=== PATIENT | female | born 1935 ===

== ENCOUNTER 2017-07-27 18:19 | Emergency (ER) | payer MEDICARE, BC ==
[2017-07-27 18:20] VITALS: BMI 24.5
[2017-07-27 18:35] VITALS: BP 131/74; PULSE 93; RESP 18; TEMP 98.5; O2SAT 97
--- NOTE | 2017-07-27 19:40 | ED PDOC ---
Arrival/HPI - General Chief Complaint: Medical Clearance Time Seen by Provider: 07/27/17 18:57 Historian: Patient - History of Present Illness Narrative History of Present Illness (Text): 07/27/17 19:50 An 82 year old female, whose past medical history includes hyperlipidemia, hypertension, ulcerative colitis, chronic UTI, Alzheimer's disease, presents to the emergency department for generalized weakness and poor appetite for two days. Patient's daughter reports patient had an infection and was taking Cipro prescribed by PMD. Denies any diarrhea, fever, chills, vomiting or any other complaints at this time. PMD: Dr. Siddiqui Symptom Onset: Sudden Symptom Course: Unchanged Activities at Onset: Rest Context: Home Past Medical History - Provider Review Nursing Documentation Reviewed: Yes - Infectious Disease Hx of Infectious Diseases: None - Tetanus Immunization Tetanus Immunization: Unknown - Cardiac Hx Cardiac Disorders: Yes Hx Hypertension: Yes Hx Pacemaker: No - Pulmonary Hx Respiratory Disorders: Yes Hx Asthma: Yes - Neurological Hx Neurological Disorder: Yes Hx Dementia: Yes Hx Paralysis: No - HEENT Hx HEENT Disorder: Yes Hx Cataracts: Yes - Renal Hx Renal Disorder: No - Endocrine/Metabolic Hx Endocrine Disorders: No - Hematological/Oncological Hx Blood Disorders: Yes Hx Blood Transfusions: No Hx Blood Transfusion Reaction: No Hx Cancer: Yes (right breast) - Integumentary Hx Dermatological Disorder: No - Musculoskeletal/Rheumatological Hx Musculoskeletal Disorders: No - Gastrointestinal Hx Gastrointestinal Disorders: Yes Hx Colitis: Yes Hx Irritable Bowel: Yes - Genitourinary/Gynecological Hx Genitourinary Disorders: Yes (UTI) Hx Reproductive Disorders: No - Psychiatric Hx Psychophysiologic Disorder: No Hx Emotional Abuse: No Hx Physical Abuse: No Hx Substance Use: No - Surgical History Hx Cholecystectomy: Yes Hx Eye Surgery: Yes Hx Mastectomy: Yes (right) - Anesthesia Hx Anesthesia Reactions: No Hx Malignant Hyperthermia: No - Suicidal Assessment Feels Threatened In Home Enviroment: No Family/Social History - Physician Review Nursing Documentation Reviewed: Yes Family/Social History: Other (non-contributory) Smoking Status: Never Smoked Hx Alcohol Use: No Hx Substance Use: No Hx Substance Use Treatment: No Allergies/Home Meds Allergies/Adverse Reactions: Allergies codeine Allergy (Intermediate, Verified 07/13/16 16:53) RASH Sulfa (Sulfonamide Antibiotics) Allergy (Intermediate, Verified 07/13/16 16:53) RASH aspirin Adverse Reaction (Intermediate, Verified 07/13/16 16:53) UPSET STOMACH Home Medications: Home Meds Medication Instructions Recorded Confirmed Donepezil HCl [Aricept ODT] 5 mg PO HS 12/04/15 07/27/17 Metoprolol Tartrate [Lopressor] 25 mg PO QID 12/04/15 07/27/17 Potassium Chloride [Klor-Con 10] 10 meq PO DAILY 12/04/15 07/27/17 Risperidone [Risperdal] 1 mg PO HS 12/04/15 07/27/17 Rosuvastatin Calcium [Crestor] 5 mg PO HS 12/04/15 07/27/17 Cyproheptadine [Cyproheptadine 4 mg PO BID 12/05/15 07/27/17 Hydrochloride] Dicyclomine [Dicyclomine HCl] 10 mg PO BID PRN 12/05/15 07/27/17 Cholestyramine [Questran] 1 packet PO .BEFORE MEALS 07/13/16 07/27/17 Ergocalciferol (Vitamin D2) 50,000 units PO .EVERY WEEK 07/13/16 07/27/17 [Vitamin D] Mesalamine [Asacol HD 800mg] 1 tab PO TID 07/13/16 07/27/17 Review of Systems - Physician Review All systems were reviewed & negative as marked: Yes - Review of Systems Constitutional: Other (generalized weakness and feeling tired; no chills). absent: Fevers Gastrointestinal: Appetite Changes. absent: Diarrhea, Vomiting Psychiatric: Other (delusional) Physical Exam Vital Signs Reviewed: Yes Vital Signs Temp Pulse Resp BP Pulse Ox 07/27/17 18:35 98.5 F 93 H 18 131/74 97 Appearance: Positive for: Comfortable Pain Distress: None Mental Status: Positive for: other (demented at baseline) - Systems Exam Head: Present: Atraumatic, Normocephalic Pupils: Present: PERRL Mouth: Present: Moist Mucous Membranes Neck: Present: Normal Range of Motion Respiratory/Chest: Present: Clear to Auscultation, Good Air Exchange. No: Respiratory Distress, Accessory Muscle Use Cardiovascular: Present: Regular Rate and Rhythm, Normal S1, S2. No: Murmurs Abdomen: Present: Normal Bowel Sounds. No: Tenderness, Distention, Peritoneal Signs Upper Extremity: Present: Normal Inspection. No: Cyanosis, Edema Lower Extremity: Present: Normal Inspection. No: Edema Skin: Present: Warm, Dry, Normal Color. No: Rashes Psychiatric: Present: Alert, Normal Insight Medical Decision Making ED Course and Treatment: 07/27/17 19:35 EKG: Ordered, reviewed, and independently interpreted the EKG. Rate : 82 BPM Rhythm : NSR Interpretation : Normal intervals, normal axis, no acute ischemia I disc case w pmd Dr Siddiqui who feels the pt will be best treated at home. Will change cipro to keflex. disc w pts daughter who v/u and agrees w plan. - Lab Interpretations Microbiology Results: Microbiology Results 07/27/17 20:59 Blood Blood Culture - Final NO GROWTH AFTER 5 DAYS 07/27/17 20:59 Blood Gram Stain - Final TEST NOT PERFORMED 07/27/17 20:30 Blood Blood Culture - Final NO GROWTH AFTER 5 DAYS 07/27/17 20:30 Blood Gram Stain - Final TEST NOT PERFORMED 07/27/17 22:20 Urine Urine Culture - Final No Growth (<1,000 CFU/ML) Lab Results: 07/27/17 20:30 07/27/17 20:30 Lab Results 07/27/17 22:20: Urine Color Yellow, Urine Appearance Clear, Urine pH 6.0, Ur Specific [place] >= 1.030, Urine Protein Trace H, Urine Glucose (UA) Negative, Urine Ketones >=80, Urine Blood Negative, Urine Nitrate Negative, Urine Bilirubin Moderate H, Urine Urobilinogen 1.0 H, Ur Leukocyte Esterase Trace H, Urine RBC 0 - 2, Urine WBC 5 - 10, Ur Epithelial Cells 3 - 4, Amorphous Sediment Few, Urine Bacteria Mod, Coarse Granular Casts Trace H 07/27/17 20:30: Sodium 140, Chloride 103, Potassium 3.7, Carbon Dioxide 25, Anion Gap 16, BUN 16, Creatinine 0.6 L, Est GFR ( Amer) > 60, Est GFR ( Non-Af Amer) > 60, Random Glucose 87, Calcium 10.0, Phosphorus 3.0, Magnesium 2.0, Total Bilirubin 0.7, AST 24, ALT 18, Alkaline Phosphatase 72, Troponin I < 0.01, Total Protein 6.8, Albumin 4.0, Globulin 2.8, Albumin/Globulin Ratio 1.4 07/27/17 20:30: pO2 33, VBG pH 7.38, VBG pCO2 45.0, VBG HCO3 26.6, VBG Total CO2 28.0, VBG O2 Sat (Calc) 78.7 H, VBG Base Excess 1.0, VBG Potassium 3.8, Sodium 139.0, Chloride 105.0, Glucose 86, Lactate 0.9, FiO2 21.0, Venous Blood Potassium 3.8 07/27/17 20:30: PT 12.6 H, INR 1.15 H, APTT 35.0 07/27/17 20:30: WBC 7.9, RBC 4.33, Hgb 12.7, Hct 37.5, MCV 86.6, MCH 29.3, MCHC 33.9, RDW 12.5, Plt Count 226, MPV 9.5, Gran % 65.6, Lymph % (Auto) 25.3, [place] % (Auto) 7.2 H, Eos % (Auto) 1.4 L, Baso % (Auto) 0.5, Gran # 5.16, Lymph # 2.0 , [place] # 0.6, Eos # 0.1, Baso # 0.04 I have reviewed the lab results: Yes - RAD Interpretation Radiology Orders: 07/27/17 19:09 CHEST PORTABLE [RAD] Stat - EKG Interpretation Interpreted by ED Physician: Yes Type: 12 lead EKG - Medication Orders Current Medication Orders: Discontinued Medications Sodium Chloride 2,000 ml/ IV (SUPPLIES) 2,000 mls @ 3,347.52 mls/hr IV ONCE ONE PRN Reason: 60 ML/KG/HR Stop: 07/27/17 19:10 Ceftriaxone Sodium (Rocephin 1 Gram Ivpb) 1 gm in 100 mls @ 200 mls/hr IVPB STAT STA PRN Reason: Protocol Stop: 07/27/17 23:40 - Scribe Statement The provider has reviewed the documentation as recorded by the Taylor Asif Provider Scribe Attestation: All medical record entries made by the Scribe were at my direction and personally dictated by me. I have reviewed the chart and agree that the record accurately reflects my personal performance of the history, physical exam, medical decision making, and the department course for this patient. I have also personally directed, reviewed, and agree with the discharge instructions and disposition. Disposition/Present on Arrival - Present on Arrival Any Indicators Present on Arrival: No History of DVT/PE: No History of Uncontrolled Diabetes: No Urinary Catheter: No History of Decub. Ulcer: No History Surgical Site Infection Following: None - Disposition Have Diagnosis and Disposition been Completed?: Yes Diagnosis: Urinary tract infection Disposition: HOME/ ROUTINE Disposition Time: 00:02 Condition: STABLE Discharge Instructions (ExitCare): Urinary Tract Infection in Women (ED) Additional Instructions: Please follow up with your doctor tomorrow. Return to the ER for any worsening symptoms or for any other concerns. Prescriptions: Cephalexin [Keflex] 500 mg PO BID #20 capsule Referrals: Sergei Siddiqui MD [Staff Provider] - Follow up with primary Forms: [employer] (Sudanese)
[2017-07-27 20:42] LABS: BASO # 0.04 K/mm3 (0.0-2.0); BASO % 0.5 % (0.0-3.0); EOS # 0.1 (0.0-0.7); EOS % 1.4 % (1.5-5.0); GRAN # 5.16 (1.4-6.5); GRAN % 65.6 % (50.0-68.0); HEMATOCRIT 37.5 % (36.0-48.0); LYMPH % 25.3 % (22.0-35.0); MEAN CELL VOLUME 86.6 fl (80.0-105.0); MEAN CORPUSCULAR HEMOGLOBIN 29.3 pg (25.0-35.0); MEAN CORPUSCULAR HGB CONC 33.9 g/dl (31.0-37.0); MEAN PLATELET VOLUME 9.5 fl (7.0-11.0); MONO # 0.6 (0.1-0.6); MONO % 7.2 % (1.0-6.0); RED CELL DISTRIBUTION WIDTH 12.5 % (11.5-14.5); WHITE BLOOD COUNT 7.9 10^3/ul (4.5-11.0)
[2017-07-27 20:48] LABS: VENOUS BLOOD PH 7.38 (7.32-7.43)
[2017-07-27 20:58] LABS: ALB/GLOB RATIO 1.4 (1.1-1.8); ALKALINE PHOSPHATASE 72 U/L (38-126); ALT/SGPT 18 U/L (7-56); AST/SGOT 24 U/L (14-36); BILIRUBIN,TOTAL 0.7 mg/dL (0.2-1.3); BLOOD UREA NITROGEN 16 mg/dL (7-21); CARBON DIOXIDE 25 mmol/L (21-33); CHLORIDE 103 mmol/L (98-107); GFR AFRICAN-AMERICAN > 60; GLUCOSE,RANDOM 87 mg/dL (70-110); POTASSIUM 3.7 mmol/L (3.6-5.0); SODIUM 140 mmol/L (132-148); TOTAL PROTEIN 6.8 g/dL (5.8-8.3)
[2017-07-27 21:01] LABS: INR 1.15 (0.93-1.08)
[2017-07-27 21:10] LABS: TROPONIN I < 0.01 ng/mL
[2017-07-27 22:35] LABS: URINE APPEARANCE CLEAR (CLEAR); URINE BILIRUBIN MODERATE (NEGATIVE); URINE BLOOD NEGATIVE (NEGATIVE); URINE COLOR YELLOW (YELLOW); URINE GLUCOSE (UA) NEGATIVE (NEGATIVE); URINE KETONE >=80 mg/dL (NEGATIVE); URINE LEUKOCYTE ESTERASE TRACE Leu/uL (NEGATIVE); URINE PROTEIN TRACE mg/dL (<30 mg/dL)
[2017-07-27 22:43] LABS: URINE BACTERIA MOD (NEG); URINE RBC 0 - 2 /hpf (0-2)
[2017-07-27 22:44] LABS: URINE AMORPHOUS SEDIMENT FEW
[2017-07-27] MEDS ORDERED: cefTRIAXone 1 gm 1 GM/100 ML BAG IVPB STA (23:11)
--- NOTE | 2017-07-28 08:40 | RAD ---
HISTORY: Sepsis Patient COMPARISON: 09/03/2015 FINDINGS: LUNGS: No active pulmonary disease. PLEURA: No significant pleural effusion identified, no pneumothorax apparent. CARDIOVASCULAR: Normal. OSSEOUS STRUCTURES: No significant abnormalities. VISUALIZED UPPER ABDOMEN: Normal. OTHER FINDINGS: None. IMPRESSION: No active disease.
--- NOTE | 2017-07-28 08:59 | HP ---
HISTORY OF PRESENT ILLNESS: The patient is an 82-year-old female. The patient was brought to the emergency room by the patient's daughter as an ambulatory walk-in. According to the patient's daughter, the patient has been increasingly depressed and not eating the last 2 days. The patient was seen a few days ago in the office. The patient was started on appetite stimulant and the patient was given p.o. antibiotic for possible suspected urinary tract infection. The patient's daughter stated that the patient has been increasingly depressed and also according to the patient's daughter, the patient has been having visual hallucination and has been psychotic and has been depressed with poor appetite and poor p.o. intake. As per the patient's ER evaluation, the patient presented to the emergency room with weakness, fatigue, tired, delusions, visual hallucination, poor appetite,and had been increasingly depressed and confused. CODE STATUS: Full code. LIVING WILL ADVANCE DIRECTIVE: None. HEIGHT: 5 feet 1 inch. WEIGHT: 123. BMI: 23. ALLERGIES: CODEINE, SULFA, ASPIRIN. HOME MEDICATIONS: 1. Aricept 5 mg or 10 mg at bedtime. 2. Asacol 800 mg 3 times a day. 3. Bentyl 10 mg twice a day p.r.n. 4. Crestor 5 mg daily. 5. K-Dur 10 mEq probably twice a day. 6. Lopressor 25 mg 4 times a day. 7. Macrobid 100 mg twice a day. 8. Periactin 4 mg twice a day. 9. Megace suspension or tablet. 10. Cholestyramine 1 packet 3 times a day. 11. Risperdal 1 mg at bedtime. 12. Drisdol 50,000 weekly. SUBSTANCE HISTORY: Negative for smoking, alcohol, or drug use or communicable transmissible disease. MENSTRUAL HISTORY: Postmenopausal. OCCUPATIONAL HISTORY: Disabled. FAMILY HISTORY: Not available. PAST MEDICAL AND SURGICAL HISTORY: History of dementia, history of dyslipidemia, history of psychosis, history of auditory and visual hallucination, history of ulcerative colitis, history of chronic abdominal pain, history of recurrent pyuria, bacteriuria, and Klebsiella urine tract infection, history of hypokalemia, history of dyslipidemia, history of anorexia, history of hypovitaminosis D, history of mild transient normocytic anemia, history of negative serum immunofixation, history of negative urine immunofixation, multiple urinary tract infections, cholecystectomy, history of sigmoid diverticulosis with mural thickening, history of uterine polyp, 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, history of soft tissue rounded ovarian mass within the endometrial cavity suspicious for endometrial polyp, history of osteoporosis and osteopenia, history of deconditioning, history of gait dysfunction, history of right breast carcinoma, history of right mastectomy in 1986, history of negative left breast mammogram, history of degenerative joint disease of the spine, history of chronic active antral gastritis, history of cardiac catheterization in 2012, history of left ventricular ejection fraction of 65%, history of negative cardiac catheterization for any coronary artery disease, esophagogastroduodenoscopy, history of small hiatal hernia, history of sepsis with Klebsiella urinary tract infection, history of delirium, history of encephalopathy, history of bradycardia, hypomagnesemia, hypertension, 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 PHYSICAL EXAMINATION: GENERAL: The patient is seen in the isolation room in the emergency room. The patient is seen lying in the bed with the patient's daughter at bedside. The patient is getting IV fluid infusion. The patient is alert, awake, responsive, confused. The patient appears to be chronically ill appearing. VITAL SIGNS: T-max 98.5, heart rate 93, blood pressure 134, 74, respiration 18, O2 saturation 97%. HEENT: Head, normocephalic, atraumatic. ENT examination shows dry oral mucosa. No facial asymmetry. Tongue is dry. Pinkish conjunctivae. NECK: No neck rigidity. Questionable soft carotid bruit. CHEST: Kyphosis. Positive right mastectomy noted. LUNGS: Examination shows no rales, crackles, or wheezing. CARDIOVASCULAR: S1 and S2. Regular rhythm. No audible murmur, gallop, or rub at this time. ABDOMEN: Soft. Positive bowel sounds. No guarding. No rigidity or rebound tenderness. No costovertebral angle tenderness. Positive kyphosis of the spine noted. GENITALIA: Female. RECTAL: Deferred. EXTREMITIES: Show no pitting edema. No calf tenderness. No Homans sign. NEUROLOGIC: The patient is alert, awake, responsive, confused, disoriented, is able to respond to her name, follow simple command. Gait examination is not tested. MUSCULOSKELETAL: Examination shows a body mass index of 23. DIAGNOSTIC STUDIES: WBC 7.9, hemoglobin and hematocrit 12.7 and 37.5, platelet 226, PT and PTT are 12.6 and 35.0. VBG shows a pH of 7.38, pO2 33, pCO2 45, bicarb 26, lactic acid 0.9. Sodium 140, potassium 3.7, chloride 103, CO2 25, anion gap 16, BUN 16, creatinine 0.6, GFR greater than 60, glucose 87, calcium 10.0, phosphorus 3.0, magnesium 2.0, troponin negative. LFTs are normal. Urine pH 6.0, specific gravity greater than 1.030, trace protein, moderate bilirubin, leukocyte esterase trace, nitrite negative, trace granular casts, moderate bacteria. The patient's chest x-ray shows, portable film, curvature of the spine. EKG report not available at present. It has been ordered. TREATMENT IN THE EMERGENCY ROOM: The patient was seen in the emergency room by the ER physician. The patient was given IV fluid replacement. The patient is awaiting EKG results. IMPRESSION: 1. Anorexia and poor oral intake. 2. Acute exacerbation of depression. 3. Acute exacerbation of hallucination, psychosis. 4. Acute exacerbation of dementia. 5. Transient tachycardia. 6. Trace proteinuria, bilirubinuria, pyuria, bacteriuria. 7. History of dementia. 8. History of dyslipidemia. 9. History of hypokalemia. 10. History of recurrent urine tract infection secondary to bladder diverticulum. 11. History of ulcerative colitis. 12. Hypovitaminosis D. PLAN: At this time, we are awaiting for the final disposition regarding the patient. If the patient is going to be admitted, the patient will require to be placed on regular diet with appetite stimulant and nutritional supplement with regular diet. The patient will require Neurology and Psychiatry evaluation if the patient is to be admitted. The patient will also may require Gastroenterology evaluation. The patient will be given regular diet if admitted. We are awaiting for further disposition about the patient's disposition. We are awaiting pending diagnostic data. Sergei Siddiqui MD
--- NOTE | 2017-07-28 09:59 | CARD ---
APPROVED REPORT EKG Measurement Heart [id number] <Conclusion> Normal sinus rhythm Normal ECG No change
== END 2017-07-28 00:02 | disposition home or self-care (01) ==
LOC: ED 18:19
DX: N39.0 Urinary tract infection, site not specified (principal); E78.5 Hyperlipidemia, unspecified; F02.80 Dementia in other diseases classified elsewhere, unspecified severity, without behavioral disturbance, psychotic disturbance, mood disturbance, and anxiety; G30.9 Alzheimer's disease, unspecified; I10 Essential (primary) hypertension

== ENCOUNTER 2017-10-10 03:59 | Inpatient (IN) | payer MEDICARE, BC ==
[2017-10-10 04:51] VITALS: BMI 22.6
--- NOTE | 2017-10-10 05:26 | ED PDOC ---
Arrival/HPI - General Chief Complaint: Trauma Time Seen by Provider: 10/10/17 05:09 Historian: Family - History of Present Illness Narrative History of Present Illness (Text): 10/10/17 05:21 Angela Parry is an 82 year old female, whose past medical history includes hyperlipidemia, hypertension, ulcerative colitis, chronic UTI, and Alzheimer's disease, who presents to the emergency department brought in by daughter status post fall tonight. Daughter states she woke up tonight to check on the patient and found her lying on the floor. Daughter is unsure how the patient fell. Daughter also notes patient fell again while walking in to the ER. Limited HPI and ROS secondary to patient's dementia. PMD: Dr. Siddiqui Time/Duration: Prior to Arrival Symptom Course: Unchanged Activities at Onset: Light Context: Home Past Medical History - Provider Review Nursing Documentation Reviewed: Yes - Infectious Disease Hx of Infectious Diseases: None - Tetanus Immunization Tetanus Immunization: Unknown - Cardiac Hx Cardiac Disorders: Yes Hx Hypertension: Yes Hx Pacemaker: No - Pulmonary Hx Respiratory Disorders: Yes Hx Asthma: Yes - Neurological Hx Neurological Disorder: Yes Hx Dementia: Yes Hx Paralysis: No - HEENT Hx HEENT Disorder: Yes Hx Cataracts: Yes - Renal Hx Renal Disorder: No - Endocrine/Metabolic Hx Endocrine Disorders: No - Hematological/Oncological Hx Blood Disorders: Yes Hx Blood Transfusions: No Hx Blood Transfusion Reaction: No Hx Cancer: Yes (right breast) - Integumentary Hx Dermatological Disorder: No - Musculoskeletal/Rheumatological Hx Musculoskeletal Disorders: No - Gastrointestinal Hx Gastrointestinal Disorders: Yes Hx Colitis: Yes Hx Irritable Bowel: Yes - Genitourinary/Gynecological Hx Genitourinary Disorders: Yes (UTI) Hx Reproductive Disorders: No - Psychiatric Hx Psychophysiologic Disorder: No Hx Emotional Abuse: No Hx Physical Abuse: No Hx Substance Use: No - Surgical History Hx Cholecystectomy: Yes Hx Eye Surgery: Yes Hx Mastectomy: Yes (right) - Anesthesia Hx Anesthesia Reactions: No Hx Malignant Hyperthermia: No - Suicidal Assessment Feels Threatened In Home Enviroment: No Family/Social History - Physician Review Nursing Documentation Reviewed: Yes Family/Social History: Unknown Family HX Smoking Status: Never Smoked Hx Alcohol Use: No Hx Substance Use: No Hx Substance Use Treatment: No Allergies/Home Meds Allergies/Adverse Reactions: Allergies codeine Allergy (Intermediate, Verified 07/13/16 16:53) RASH Sulfa (Sulfonamide Antibiotics) Allergy (Intermediate, Verified 07/13/16 16:53) RASH aspirin Adverse Reaction (Intermediate, Verified 07/13/16 16:53) UPSET STOMACH Home Medications: Home Meds Medication Instructions Recorded Confirmed Donepezil HCl [Aricept ODT] 10 mg PO HS 12/04/15 10/10/17 Risperidone [Risperdal] 1 mg PO HS 12/04/15 10/10/17 Review of Systems - Review of Systems Systems not reviewed;Unavailable: Dementia Constitutional: Other (+fall) Physical Exam Vital Signs Reviewed: Yes Vital Signs Temp Pulse Resp BP Pulse Ox 10/10/17 04:35 98.0 F 120 H 19 122/52 L 97 Temperature: Afebrile Blood Pressure: Normal Pulse: Regular Respiratory Rate: Normal Appearance: Positive for: Well-Appearing, Non-Toxic, Comfortable Pain Distress: None Mental Status: Positive for: other (Awake, alert, non-communicative (hx of dementia)) - Systems Exam Head: Present: Atraumatic, Normocephalic Pupils: Present: PERRL Extroacular Muscles: Present: EOMI Conjunctiva: Present: Normal Mouth: Present: Moist Mucous Membranes Neck: Present: Normal Range of Motion Respiratory/Chest: Present: Clear to Auscultation, Good Air Exchange. No: Respiratory Distress, Accessory Muscle Use Cardiovascular: Present: Regular Rate and Rhythm, Normal S1, S2. No: Murmurs Abdomen: Present: Normal Bowel Sounds. No: Tenderness, Distention, Peritoneal Signs Back: Present: Normal Inspection Upper Extremity: Present: Normal Inspection. No: Cyanosis, Edema Lower Extremity: Present: Normal Inspection, NORMAL PULSES, Normal ROM, Neurovascularly Intact, Capillary Refill < 2 s. No: Edema, Tenderness, Swelling , Erythema, Deformity, Temperature Abnormalties Neurological: Present: GCS=15, CN II-XII Intact Skin: Present: Warm, Dry, Normal Color. No: Rashes Psychiatric: Present: Alert (Awake, alert, non-communicative (hx of dementia)) Medical Decision Making ED Course and Treatment: 10/10/17 05:21 Impression: 82 year old female presents s/p 2 fall tonight. Plan: -- CT Head w/o contrast -- EKG -- CXR -- Labs, cardiac enzymes -- Urinalysis -- Reassess and disposition Progress Notes: Reviewed EKG, NSR at [address] bpm[address] Non-specific ST/T wave changes. 10/10/17 06:44 CXR reviewed, shows no acute processes. 10/10/17 07:11 Case was d/w .Accepts to his service. - Lab Interpretations Lab Results: 10/10/17 05:30 10/10/17 05:30 Lab Results 10/10/17 06:10: Urine Color Yellow, Urine Appearance Clear, Urine pH 6.0, Ur Specific [place] >= 1.030, Urine Protein 30 H, Urine Glucose (UA) Negative, Urine Ketones 15 H, Urine Blood Trace-intact H, Urine Nitrate Negative, Urine Bilirubin Negative, Urine Urobilinogen 0.2, Ur Leukocyte Esterase Negative, Urine RBC Pending, Urine WBC Pending 10/10/17 05:30: WBC 8.7, RBC 4.16, Hgb 12.2, Hct 37.0, MCV 88.9, MCH 29.3, MCHC 33.0, RDW 13.1, Plt Count 235, MPV 9.9 10/10/17 05:30: Sodium 140, Potassium 2.9 L* D, Chloride 100, Carbon Dioxide 29 , Anion Gap 14, BUN 9, Creatinine 0.5 L, Est GFR ( Amer) > 60, Est GFR ( Non-Af Amer) > 60, Random Glucose 148 H, Calcium 10.2, Total Bilirubin 0.7, AST 33, ALT 12, Alkaline Phosphatase 71, Lactate Dehydrogenase 388, Total Creatine Kinase 65, Troponin I 0.04 D, Total Protein 7.2, Albumin 4.2, Globulin 3.0, Albumin/Globulin Ratio 1.4 10/10/17 05:30: PT 11.8, INR 1.03, APTT 31.0 - RAD Interpretation Radiology Orders: 10/10/17 05:09 CHEST PORTABLE [RAD] Stat 10/10/17 05:22 HEAD W/O CONTRAST [CT] Stat Manager Net: ED Physician - EKG Interpretation Interpreted by ED Physician: Yes Type: 12 lead EKG - Medication Orders Current Medication Orders: Discontinued Medications Lorazepam (Ativan) 1 mg IVP ONCE ONE Stop: 10/10/17 05:29 Last Admin: 10/10/17 05:40 Dose: 1 mg IVP Administration Document 10/10/17 05:40 JOL (Rec: 10/10/17 06:10 GUILHERME [id number]) Charges for Administration # of IVP Administrations 1 Potassium Chloride (K-Dur 20 Meq Er Tab) 40 meq PO STAT STA Stop: 10/10/17 06:56 - Scribe Statement The provider has reviewed the documentation as recorded by the Taylor Badillo Provider Scribe Attestation: All medical record entries made by the Scribe were at my direction and personally dictated by me. I have reviewed the chart and agree that the record accurately reflects my personal performance of the history, physical exam, medical decision making, and the department course for this patient. I have also personally directed, reviewed, and agree with the discharge instructions and disposition. Disposition/Present on Arrival - Present on Arrival Any Indicators Present on Arrival: No History of DVT/PE: No History of Uncontrolled Diabetes: No Urinary Catheter: No History of Decub. Ulcer: No History Surgical Site Infection Following: None - Disposition Have Diagnosis and Disposition been Completed?: Yes Diagnosis: Syncope, Hypokalemia Disposition: HOSPITALIZED Disposition Time: 07:03 Patient Problems: Current Active Problems Problem Status Onset Hypokalemia Acute Syncope Acute Condition: STABLE Discharge Instructions (ExitCare): Syncope (ED) Referrals: Sergei Siddiqui MD [Primary Care Provider] - Follow up with primary Forms: [employer] (Panamanian)
[2017-10-10 06:32] LABS: HEMOGLOBIN 12.2 g/dL (12.0-16.0); MEAN CELL VOLUME 88.9 fl (80.0-105.0); MEAN CORPUSCULAR HEMOGLOBIN 29.3 pg (25.0-35.0); MEAN PLATELET VOLUME 9.9 fl (7.0-11.0); RBC 4.16 10^6/uL (3.5-6.1); RED CELL DISTRIBUTION WIDTH 13.1 % (11.5-14.5); WHITE BLOOD COUNT 8.7 10^3/ul (4.5-11.0)
[2017-10-10 06:45] LABS: TROPONIN I 0.04 ng/mL
--- NOTE | 2017-10-10 06:52 | CT ---
EXAM: CT Head Without Intravenous Contrast CLINICAL HISTORY: 82 years old, female; Signs and symptoms; Syncope and collapse TECHNIQUE: Axial computed tomography images of the head/brain without intravenous contrast. All CT scans at this facility use one or more dose reduction techniques, viz.: automated exposure control; ma/kV adjustment per patient size (including targeted exams where dose is matched to indication; i.e. head); or iterative reconstruction technique. COMPARISON: CT - HEAD W/O CONTRAST 2015-09-03 10:42 FINDINGS: Brain: Mild atrophy. No intracranial hemorrhage. No mass. Few scattered foci of decreased attenuation within periventricular/subcortical white matter. No definite edema. Ventricles: No hydrocephalus. Bones/joints: No acute fracture. Soft tissues: Unremarkable. Vasculature: Mild atherosclerotic disease of intracranial arteries. Sinuses: Scattered minimal mucosal thickening. Mastoid air cells: No mastoid effusion. Orbits: Unremarkable as visualized. IMPRESSION: 1. Nonspecific white matter changes. Acute infarction may be CT occult within first 24 hours. If a focal deficit persists, consider followup CT or MRI for further evaluation. 2. Incidental/non-acute findings are described above.
[2017-10-10 06:53] LABS: URINE BILIRUBIN NEGATIVE (NEGATIVE); URINE BLOOD TRACE-INTACT (NEGATIVE); URINE GLUCOSE (UA) NEGATIVE (NEGATIVE); URINE LEUKOCYTE ESTERASE NEGATIVE Leu/uL (NEGATIVE); URINE NITRATE NEGATIVE (NEGATIVE); URINE PROTEIN 30 mg/dL (<30 mg/dL); URINE UROBILINOGEN 0.2 E.U./dL (<1 E.U./dL)
[2017-10-10 06:53] LABS: INR 1.03 (0.93-1.08); PROTHROMBIN TIME 11.8 SECONDS (9.4-12.5)
[2017-10-10] MEDS ORDERED: Potassium Chloride 20 mEq ER Tab PO STA (06:55)
[2017-10-10 06:57] LABS: URINE APPEARANCE CLEAR (CLEAR); URINE COLOR YELLOW (YELLOW)
[2017-10-10 06:59] LABS: ALB/GLOB RATIO 1.4 (1.1-1.8); ALBUMIN 4.2 g/dL (3.0-4.8); ALT/SGPT 12 U/L (7-56); AST/SGOT 33 U/L (14-36); BLOOD UREA NITROGEN 9 mg/dL (7-21); CALCIUM 10.2 mg/dL (8.4-10.5); GFR AFRICAN-AMERICAN > 60; GFR NON-AFRICAN AMERICAN > 60
[2017-10-10] MEDS ORDERED: Potassium Chloride 20 mEq 100 ML IV ONE (07:10)
[2017-10-10 07:28] LABS: URINE EPITHELIAL CELLS 0 - 2 /hpf (0-5)
[2017-10-10 08:37] LABS: MAGNESIUM 1.9 mg/dL (1.7-2.2)
[2017-10-10 08:47] LABS: TROPONIN I 0.05 ng/mL
[2017-10-10] MEDS: Sodium Chloride 0.9% 1,000 ML IV SCH ×2 (08:49→20:33)
[2017-10-10 08:54] LABS: FREE T4 1.59 ng/dL (0.78-2.19); T4 14.5 ug/dL (5.5-11.0)
[2017-10-10] MEDS: Potassium Chloride 10 mEq 100 ML IVPB SCH ×2 (09:04→11:26)
[2017-10-10] MEDS: Enoxaparin 40 mg Syringe SC SCH (10:09)
--- NOTE | 2017-10-10 11:04 | RAD ---
PROCEDURE: CHEST RADIOGRAPH, 1 VIEW HISTORY: medical clearance COMPARISON: None available. FINDINGS: LUNGS: Mild fibrotic changes with suggestion of slight interval bronchiectasis in the left upper lobe. PLEURA: No pneumothorax or pleural fluid seen. CARDIOVASCULAR: Normal. OSSEOUS STRUCTURES: No significant abnormalities. VISUALIZED UPPER ABDOMEN: Normal. OTHER FINDINGS: None. IMPRESSION: Mild fibrotic changes with suggestion of slight interval bronchiectasis in the left upper lobe.
[2017-10-10 11:42] LABS: TROPONIN I 0.05 ng/mL
--- NOTE | 2017-10-10 11:50 | CARD ---
APPROVED REPORT EKG Measurement Heart [id number] <Conclusion> Normal sinus rhythm Nonspecific T wave abnormality Abnormal ECG
--- NOTE | 2017-10-10 15:37 | CON ---
DATE: 10/10/2017 CHIEF COMPLAINT: Status post fall. HISTORY OF PRESENT ILLNESS: This is an 82-year-old woman with past medical history of dementia, ulcerative colitis, hypertension, chronic UTIs, hyperlipidemia, presented to the ER because the daughter found her on the floor by her bed. I am unsure whether the patient passed out or she fell. While she fell again while walking to the ER. She is deconditioned. She does have dementia and is alert, oriented to person, place, and not much of the month or year. Recall after 5 minutes is 0 out of 3. She has very poor attention span. She is on Aricept 10 mg for underlying dementia. She is on Risperdal at night for agitation. She was found to have low potassium 2.9 and seems very dehydrated with a low creatinine of 0.5. Her blood pressures are stable. PAST MEDICAL HISTORY: Hyperlipidemia, hypertension, ulcerative colitis, chronic UTI, Alzheimer's type dementia. REVIEW OF SYSTEMS: A 14-point review of systems is negative except as per the HPI. FAMILY HISTORY: Noncontributory. ALLERGIES: CODEINE, SULFA, AND ASPIRIN. MEDICATIONS: Reviewed by nurse's reconciliation sheet. SOCIAL HISTORY: No illicit drug use, smoking, or EtOH abuse. FAMILY HISTORY: Noncontributory. PHYSICAL EXAMINATION: VITAL SIGNS: Temperature 98, pulse rate of 120, blood pressure 122/52, respiratory rate 19, oxygen saturation 97% on room air. GENERAL: The patient is sitting up in bed, in no acute distress.. HEENT: Atraumatic and normocephalic. PERRLA. Extraocular muscles intact. NECK: Supple. No JVD. No adenopathy noted. LUNGS: Clear to auscultation. No adventitious sounds. HEART: S1 and S2. Normal rate and rhythm. No murmurs, rubs, or gallops. ABDOMEN: Soft, nontender and nondistended. Bowel sounds are present. EXTREMITIES: No clubbing. No cyanosis. Peripheral pulses are 2+ felt bilaterally. NEUROLOGIC: The patient is alert and oriented to person, place, not much of month and year. Recall in 5 minutes is 0/3. Poor attention span and slow thought process. She has very disorganized thinking and is very forgetful. Her cranial nerves II through XII are intact. Motor exam, slightly increased tone throughout. Moves all extremities equally. No pronator drift seen. Sensory exam: Withdraws to localized noxious stimulus. Light touch intact. DTRs are 1+ throughout. Coordination and [id number] intact. Gait is deferred for now. LABORATORY DATA: Sodium 140, potassium 2.9, chloride 100, carbon dioxide of 29, BUN of 9, creatinine 0.5, and random glucose 148. ASSESSMENT: This is an 82-year-old woman with history of dementia, Alzheimer's type, hypertension, dyslipidemia, ulcerative colitis, chronic urinary tract infection, new component of status post fall; was unsure whether the patient had passed out or had a mechanical fall. At this time, she is deconditioned. She does have severe cognitive impairment. RECOMMENDATIONS: 1. Aricept 10 mg p.o. at bedtime and thiamine 100 mg p.o. daily for underlying dementia. 2. Delirium precautions. 3. Avoid nighttime interruptions. 4. Orthostatic vital signs. 5. MRI of the brain to assess for any acute intracranial abnormalities. 6. Carotid Doppler. 7. She needs PT/OT and likely subacute rehab for deconditioned state. Once again, thank you for this consult. Otilio Rod MD
[2017-10-10] MEDS ORDERED: Pneumococcal 23-Valent Vaccine IM ONE (15:39)
[2017-10-10] MEDS ORDERED: Influenza Vaccine 60 mcg/0.5 mL SYR (4YR UP) IM ONE (15:39)
[2017-10-10 15:45] LABS: TROPONIN I 0.04 ng/mL
[2017-10-10 16:31] LABS: BLOOD UREA NITROGEN 7 mg/dL (7-21); CALCIUM 9.8 mg/dL (8.4-10.5); GFR AFRICAN-AMERICAN > 60; GFR NON-AFRICAN AMERICAN > 60
[2017-10-10] MEDS: Pantoprazole 20 mg EC Tab PO SCH (17:18)
--- NOTE | 2017-10-10 17:33 | CARD ---
APPROVED REPORT EXAM: Two-dimensional and M-mode echocardiogram with Doppler and color Doppler. INDICATION 2D DIMENSIONS IVSd0.8 (0.7-1.1cm)LVDd3.5 (3.9-5.9cm) PWd0.9 (0.7-1.1cm)LVDs2.5 (2.5-4.0cm) FS (%) 29.9 %LVEF (%)58.1 (>50%) M-Mode DIMENSIONS Left Atrium (MM)3.60 (2.5-4.0cm)Aortic Root2.70 (2.2-3.7cm) Aortic Cusp Exc.2.00 (1.5-2.0cm) Aortic Valve AoV Peak Itltdpvf029.0cm/Rashard Peak GR.8mmHg Mitral Valve MV E Uwrfdqjd34.6cm/sMV A Hlyseknb863.0cm/sE/A ratio0.6 TDI Lateral E' Peak V5.65cm/sMedial E' Peak V6.63cm/sE/Lateral E'12.5 E/Medial E'10.6 Tricuspid Valve TR Peak Pedmjqww412zy/sRAP CMEXFVAH01kyNjIH Peak Gr.27mmHg QTAY81zvRc LEFT VENTRICLE The left ventricle is normal size. There is normal left ventricular wall thickness. The left ventricular function is normal.EF-55% There is normal LV segmental wall motion. The left ventricular diastolic function is normal. No left ventricle thrombus noted on this study. There is no ventricular septal defect visualized. There is no left ventricular aneurysm. RIGHT VENTRICLE The right ventricle is normal size. There is normal right ventricular wall thickness. The right ventricular systolic function is normal. ATRIA The left atrium size is normal. The right atrium size is normal. The interatrial septum is intact with no evidence for an atrial septal defect. AORTIC VALVE The aortic valve is normal in structure. No aortic regurgitation is present. There is no aortic valvular stenosis. There is no aortic valvular vegetation. MITRAL VALVE The mitral valve is thickened but opens well. Mitral regurgitation is trace. There is no mitral valve stenosis. There is no evidence of mitral valve prolapse. TRICUSPID VALVE The tricuspid valve leaflets are thickened , but open well. There is mild tricuspid regurgitation.RVSP_37 mmof Hg. There is no tricuspid valve stenosis. There is no tricuspid valve prolapse or vegetation. PULMONIC VALVE The pulmonic valve is not well visualized. GREAT VESSELS The aortic root is normal in size. The ascending aorta is normal in size. The pulmonary artery is normal. The IVC is normal in size and collapses >50% with inspiration. PERICARDIAL EFFUSION There is no pleural effusion. There is no pericardial effusion. <Conclusion> Normal Chamber size. Ef-55% Mitral regurgitation is trace. There is mild tricuspid regurgitation.RVSP_37 mmof Hg. There is no pericardial effusion. TDS, Pt was Right lat position and was combative at the time of study, Suggest to repeat study when pt becomes sobber.
[2017-10-10] MEDS: DONEPEZIL HCL 10 MG PO SCH (21:24)
--- NOTE | 2017-10-10 22:17 | CT ---
EXAM: CT Chest Without Intravenous Contrast CT Abdomen and Pelvis Without Intravenous Contrast EXAM DATE/TIME: 10/10/2017 12:42 PM CLINICAL HISTORY: 82 years old, female; Condition or disease; Cancer; Other: Weight loss/hx breast cancer TECHNIQUE: Axial computed tomography images of the chest, abdomen and pelvis without intravenous contrast. All CT scans at this facility use one or more dose reduction techniques, viz.: automated exposure control; ma/kV adjustment per patient size (including targeted exams where dose is matched to indication; i.e. head); or iterative reconstruction technique. All CT scans at this facility use one or more dose reduction techniques, viz.: automated exposure control; ma/kV adjustment per patient size (including targeted exams where dose is matched to indication; i.e. head); or iterative reconstruction technique. Coronal and sagittal reformatted images were created and reviewed. COMPARISON: Prior CT abdomen and pelvis of 2017-02-24 FINDINGS: LIMITATIONS: Mild to moderate streak/motion artifact. CHEST: LUNGS: Mild scarring in the lung apices bilaterally. No evidence of significant focal consolidation/infiltrate in the lungs. No evidence of diffuse pulmonary nodules. No evidence of suspicious, spiculated lung masses. PLEURAL SPACE: No pneumothorax or significant pleural effusions seen. HEART: No evidence of significant pericardial effusion. ABDOMEN: LIVER: No acute abnormality of the liver identified. No evidence of diffuse liver lesions on this unenhanced exam. GALLBLADDER AND BILE DUCTS: Biliary ductal dilatation, which may be related to the post cholecystectomy state. Normal gallbladder is not seen. Recommend correlation with surgical history and LFTs. PANCREAS: No CT evidence of acute pancreatitis. SPLEEN: No acute abnormality of the spleen identified. ADRENALS: No acute abnormality of the adrenal glands. KIDNEYS AND URETERS: Low density lesion in the right kidney, most likely a cyst. This measures 2.2 cm. No evidence of significant hydroureteronephrosis. STOMACH AND BOWEL: Colonic diverticulosis, with no evidence of acute diverticulitis. Duodenal diverticula noted. Otherwise, no significant abnormality of the bowel is identified. No evidence of bowel obstruction. APPENDIX: Appendix is seen, and is within normal limits in appearance. PELVIS: BLADDER: Bladder diverticulosis. Findings could be secondary to chronic bladder outlet obstruction. Recommend clinical correlation. REPRODUCTIVE: Low density area in the uterus centrally, suspicious for a dilated endometrial canal or thickened endometrium. This is a new finding compared to the prior CT, and is of normal in a postmenopausal patient. No evidence of large adnexal masses. CHEST, ABDOMEN and PELVIS: INTRAPERITONEAL SPACE: No evidence of free intraperitoneal air or fluid. BONES/JOINTS: Bony structures appear demineralized. No evidence of diffuse bony metastatic disease. SOFT TISSUES: . Evidence of previous right mastectomy. VASCULATURE: Exam is nondiagnostic for aortic dissection, secondary to unenhanced technique. No evidence of abdominal aortic aneurysm. LYMPH NODES: No evidence of diffuse lymphadenopathy. IMPRESSION: - Findings suspicious for a dilated endometrial canal or thickened endometrium, an abnormal finding in a postmenopausal patient. Pelvic ultrasound is recommended for further evaluation. - Otherwise, no definite evidence of malignancy on this unenhanced exam. - Biliary ductal dilatation, which may be secondary to the postcholecystectomy state. - Bladder diverticulosis. - See above for multiple non-emergent findings.
--- NOTE | 2017-10-11 03:20 | CON ---
DATE: 10/10/2017 CONSULTING MANAGEMENT ACCOUNTS MANAGER: Dr. Sherman. CONSULTATION COVERING: Modesto Kee MD REASON FOR CONSULTATION: Syncope, cardiac evaluation (covering Dr. Modesto Kee). BRIEF CLINICAL HISTORY: This is an 82-year-old female with past medical history significant for dementia, ulcerative colitis, hypertension, chronic urinary tract infection, hypertension, presented to the ER after being brought by the daughter, who was found in the floor. The patient is unable to give a detailed history, not sure what happened and has no recollection of whole event, though on admission, found to be very severe, hypokalemic, potassium 2.9. PAST MEDICAL HISTORY: Hypertension, hyperlipidemia, ulcerative colitis, chronic UTI, Alzheimer disease, dementia. REVIEW OF SYSTEMS: A 14-point review of systems as per HPI. FAMILY HISTORY: Noncontributory. ALLERGIES: TO ASPIRIN, SULFA AND CODEINE. CURRENT MEDICATIONS: The patient at home was taking Risperdal 1 mg p.o. nightly and 10 mg of Aricept. PHYSICAL EXAMINATION VITAL SIGNS: Temperature afebrile, heart rate 120, blood pressure 122/52. HEENT: PERRLA. Extraocular muscles intact. NECK: Supple. No carotid bruit or thyromegaly. CHEST: Clear to auscultation. HEART: S1 and S2 regular. ABDOMEN: Soft. EXTREMITIES: Clubbing, cyanosis negative. LABORATORY DATA: Blood workup as follows: WBC is 8.6, hemoglobin 12.2, hematocrit 37.0, platelet count 235. Chemistry shows sodium 144, potassium 2.9, chloride 100, carbon dioxide 29, anion gap of 14, BUN of 9, and creatinine 0.5. Troponin 0.04. IMPRESSION: Status post fall, syncope, dementia, severe hypokalemia on admission, hypertension, hyperlipidemia, borderline positive troponin. EKG showed normal sinus rhythm. No acute ST-T changes noted. RECOMMENDATION: We will get noninvasive workup including echo. Orthostatic hypotension. He does have low potassium, replete potassium, bilateral carotid, TSH, lipid profile, hemoglobin A1c. We will follow with you. We will transfer care on Thursday to Dr. Modesto Kee. Thank you ____ taking care of the patient. Kaycee Sherman MD [facility] # [id number]
[2017-10-11] MEDS: Pantoprazole 20 mg EC Tab PO SCH ×2 (05:27→16:39)
--- NOTE | 2017-10-11 06:31 | HP ---
HISTORY OF PRESENT ILLNESS: The patient is an 82-year-old female, was brought into the emergency room by the patient's family. The patient's daughter that the patient has been having recurrent falls. The patient was found on the floor in the bedroom. The patient had recurrent falls. Did not have any head injury. The patient's daughter also reports declining overall patient's health, poor p.o. intake. The patient was found by the daughter on the floor. It is unable to be determined whether the patient had a loss of consciousness or not. Thirteen-system review was done, pertinent positive and negative dictated above. The patient was recently seen in the office within the last month or so, and the patient's daughter, Yumiko, has stated that the patient has stopped taking most of the medications. Code status, full code. Living will/advance directive, none. Height is 5 feet 1 inch. Weight is 120. BMI is 23. ALLERGIES: CODEINE, SULFA, SULFONAMIDE, ASPIRIN. HOME MEDICATIONS: Only Risperdal 1 mg or 2 mg at bedtime or Aricept 10 mg at bedtime as mentioned before that the patient has stopped most of the medications at home. SOCIAL HISTORY: Negative for substance abuse. Negative for alcohol. Negative for smoking. Negative for drug use. OCCUPATIONAL HISTORY: Not applicable. MENSTRUAL HISTORY: Postmenopausal. PAST MEDICAL/SURGICAL HISTORY: History of dementia, history of psychosis, history of hallucination, history of urinary tract infection, history of anorexia, history of weight loss, history of ulcerative colitis, history of visual hallucination, history of depression, history of poor appetite, history of dyslipidemia, history of hypovitaminosis D, history of auditory or visual hallucination, history of chronic abdominal pain, history of recurrent pyuria, bacteriuria, Klebsiella urinary tract infection, history of multiple urine tract infection, history of cholecystectomy, history of sigmoid diverticulosis, history of uterine polyp, history of bladder diverticulum with recurrent urinary tract infection, history of ovarian mass, history of endometrial polyp, history of osteoporosis, osteopenia, history of deconditioning, history of gait dysfunction, history of right breast carcinoma, history of right mastectomy, history of degenerative joint disease, history of chronic active antral gastritis, history of cardiac catheterization done in 2012 with left ventricular ejection fraction of 65% with negative coronary artery disease, history of hiatal hernia, history of sepsis with Klebsiella urinary tract infection, history of encephalopathy, history of hypomagnesemia, history of cerebral cortical atrophy of the brain, history of small vessel ischemic disease of the brain, history of vertigo, history of insomnia, history of severe confusional disorder, history of kyphoscoliosis, history of questionable asthma versus chronic obstructive pulmonary disease, history of sigmoid and descending colon diverticulosis, history of fatty involution of the pancreas, history of renal cyst, history of anteverted atrophic uterus, history of postmenopausal status, history of bilateral cataract surgery, history of anemia, history of microscopic hematuria, history of hypokalemia, history of delirium with psychosis and dementia. LOCATION: The patient is seen in the emergency room. Then, the patient was seen in room 375, bed 1. PHYSICAL EXAMINATION: VITAL SIGNS: T-max 98. The patient's telemetry shows heart rate of 120, 106, 101; blood pressure 122/52; respirations 19; O2 sat 97%. GENERAL: The patient is seen, lying in the bed. The patient appears to be dehydrated, cachectic looking. The patient is alert, arousable, awake, responsive . The patient has bitemporal and facial muscle wasting. Dry oral mucosa. NECK: No neck rigidity. Questionable soft carotid bruit. No jugular venous distention. CHEST: Kyphosis. Positive right mastectomy. LUNGS: Shows no rales, crackles, or wheezing. CARDIOVASCULAR: S1, S2, regular rhythm. Questionable soft systolic murmur in left sternal border, right second intercostal space. ABDOMEN: Soft. Positive bowel sound. Positive surgical scar, cholecystectomy. No hepatosplenomegaly noted. No guarding. No rigidity. No rebound tenderness. GENITALIA: Female. RECTAL: Deferred. EXTREMITY: Shows no pitting edema, no Menchaca's, Homans' sign. No clubbing, no cyanosis. VASCULAR: Palpable pulses. MUSCULOSKELETAL: Shows a body mass index of 22. Cranial nerves II-XII limited. Gait examination is not tested. DIAGNOSTICS: WBC 8.7, hemoglobin/hematocrit 12.2/37.0, platelet 235. PT/PTT 11.8/31.0. Sodium 140, potassium 2.9, chloride 100, CO2 of 29, anion gap 14, BUN 9, creatinine 0.5, GFR greater than 60, glucose 148, calcium 10.2, magnesium 1.9. LFTs are normal. Ammonia less than 9. Troponin 0.04. Cholesterol 152, LDL 76, HDL 54, TSH 1.34, T4 is 14.5. Urine pH 6.0, specific gravity 1.030, urine protein 30, ketone 15. Blood trace intact. T4 is 14.5 which is elevated, free T4 is also high normal and mid normal. The patient had a x-ray of the head done, chest x-ray done. Chest x-ray done, which shows left upper lobe bronchiectasis and fibrotic changes. The patient had a CAT scan of the head done, which was noted. EKG was done, which shows sinus rhythm, baseline artifact, poor nonspecific ST changes, poor R-wave progression, V1-V3. The patient was seen and evaluated in the emergency room by Dr. Gay. The patient was given Ativan 1 mg IV in the ER and K-Dur 20 mEq, and the patient was advised to be hospitalized. IMPRESSION: 1. Status post multiple recurrent unwitnessed falls. 2. Probable syncope. 3. Acute exacerbation of dementia. 4. Anorexia and weight loss with facial and bitemporal muscle wasting. 5. Malnutrition. 6. Tachycardia. 7. Questionable thyromegaly. 8. Acute severe symptomatic hypokalemia. 9. Hyperglycemia. 10. Questionable subclinical hyperthyroidism with elevated thyroxine. 11. Proteinuria, microscopic hematuria. 13. Left upper lobe bronchiectasis and fibrotic changes. 14. History of right breast carcinoma, status post mastectomy. 15. Cerebral cortical atrophy of the brain. 16. Subcortical periventricular small-vessel ischemic disease of the brain with intracranial atherosclerotic disease. 17. Minimal mucosal sinus thickening. 18. Sinus tachycardia. 19. Questionable subclinical hyperthyroidism. 20. Possible acute exacerbation of dementia versus delirium. 21. Possible Alzheimer's type dementia. 22. History of ulcerative colitis. 22. Status post recurrent mechanical fall versus falls, unwitnessed. 23. Deconditioning. 24. Gait dysfunction. 25. Acute exacerbation of dementia with severe cognitive impairment. 26. History of psychosis and auditory and visual hallucination. PLAN: At this time, the patient will be admitted to telemetry. Repeat labs ordered. Next consultation, Cardiology, Gastroenterology for anorexia and weight loss, Neurology. The patient has been started on Aricept 10 mg at bedtime, Ecotrin 81 mg daily, potassium supplementation intravenous and p.o. ordered. The patient was started on DVT prophylaxis, Lovenox 40 mg subcu daily, Periactin 4 mg twice a day, Protonix 40 mg daily or 20 mg twice a day, Risperdal 1 mg at bedtime. The patient is also started on 0.9 normal saline at 80 mL an hour, and the patient is also started on Tapazole 5 mg daily. Next, thiamine 100 mg daily. In addition, the patient is ordered carotid and vertebral Doppler, thyroid ultrasound for evaluation of possible questionable hyperthyroidism. In addition, MRI, MRA of the brain ordered. The patient has also been ordered a CAT scan of the chest, abdomen, and pelvis for evaluation of weight loss, anorexia. Repeat EKG has been ordered. EEG has been ordered. The patient is started on regular diet with dietary supplementation. The patient will be referred for physical therapy, occupational therapy, TCU evaluation. At present, the patient is evaluated in the emergency room and telemetry. The patient's condition, diagnosis, management, overall guarded to poor prognosis was explained to the patient's daughter, Yumiko, at length, and all questions concerned answered to their satisfaction. Dictated and electronically signed, not read. Sergei Siddiqui MD
[2017-10-11 08:37] LABS: BASO # 0.03 K/mm3 (0.0-2.0); BASO % 0.4 % (0.0-3.0); EOS # 0.1 (0.0-0.7); EOS % 1.7 % (1.5-5.0); GRAN # 4.81 (1.4-6.5); GRAN % 62.3 % (50.0-68.0); HEMOGLOBIN 11.3 g/dL (12.0-16.0); LYMPH # 2.2 (1.2-3.4); LYMPH % 27.9 % (22.0-35.0); MEAN CELL VOLUME 89.2 fl (80.0-105.0); MEAN CORPUSCULAR HEMOGLOBIN 29.1 pg (25.0-35.0); MEAN CORPUSCULAR HGB CONC 32.7 g/dl (31.0-37.0); MEAN PLATELET VOLUME 10.1 fl (7.0-11.0); MONO # 0.6 (0.1-0.6); MONO % 7.7 % (1.0-6.0); RBC 3.88 10^6/uL (3.5-6.1); RED CELL DISTRIBUTION WIDTH 13.3 % (11.5-14.5); WHITE BLOOD COUNT 7.7 10^3/ul (4.5-11.0)
[2017-10-11 09:07] LABS: ALB/GLOB RATIO 1.2 (1.1-1.8); ALBUMIN 3.4 g/dL (3.0-4.8); ALT/SGPT 10 U/L (7-56); AST/SGOT 23 U/L (14-36); BILIRUBIN,DIRECT 0.4 mg/dL (0.0-0.4); BLOOD UREA NITROGEN 8 mg/dL (7-21); CALCIUM 9.5 mg/dL (8.4-10.5); GFR AFRICAN-AMERICAN > 60; GFR NON-AFRICAN AMERICAN > 60
[2017-10-11] MEDS: Sodium Chloride 0.9% 1,000 ML IV SCH ×3 (10:41→23:17)
[2017-10-11] MEDS: Enoxaparin 40 mg Syringe SC SCH (10:49)
[2017-10-11] MEDS: methIMAzole 5 MG TAB PO SCH (10:50)
[2017-10-11] MEDS: Potassium Chloride 20 mEq ER Tab PO SCH ×2 (10:50→19:25)
--- NOTE | 2017-10-11 12:01 | CARD ---
APPROVED REPORT EKG Measurement Heart [id number] <Conclusion> Sinus tachycardia with occasional premature ventricular complexes Low voltage QRS Base line artefact, please repeat Abnormal ECG
[2017-10-11] MEDS ORDERED: DiphenhydrAMINE 50 mg/ml Inj IM ONE (13:00)
--- NOTE | 2017-10-11 14:48 | PN ---
DATE: 10/11/2017 SUBJECTIVE: The patient is seen in room 375, bed 1. According to the overnight nurse's notes, the patient was found to be having flat affect, but was following commands. The patient was found to be resting in bed. No pain, no stress was noted. The patient refused medications. The patient was found to be confused overnight. The patient was found to be alert, awake, and oriented x1. The patient was unable to do MRI secondary to back and neck pain last night. OBJECTIVE: VITAL SIGNS: T-max 98.6, telemetry shows sinus rhythm, heart rate 75, 91, 100, 101, 120, and 106, respirations 18-20, O2 sat 100% to 99%, and blood pressures 122/52, 116/60, and 114/71. INTAKE AND OUTPUT: Not documented. HEENT: Head: Normocephalic, atraumatic. HEENT examination shows pinkish pale conjunctivae. Dry oral mucosa. NECK: No neck rigidity. Questionable soft carotid bruit. CHEST: Kyphosis. Positive right mastectomy. LUNGS: Examination shows no rales, crackles or wheezing. CARDIOVASCULAR: S1, S2, regular rhythm. Questionable soft systolic murmur left sternal border, right second intercostal space. ABDOMEN: Soft. Positive bowel sounds. Healed surgical scar of cholecystectomy. No hepatosplenomegaly. No guarding. No rigidity. No costovertebral angle tenderness. GENITALIA: Female. RECTAL: Deferred. EXTREMITIES: Shows no pitting edema, no calf numbness, no Homans' sign. MUSCULOSKELETAL: Examination shows body mass index of 23. NEUROLOGIC: Cranial nerves II-XII limited. The patient is alert, awake, and oriented x1, confused, disoriented. Flat affect. Gait examination is not tested. PSYCHIATRIC: Positive for history of psychosis and hallucinations. VASCULAR: Palpable pulses. DIAGNOSTIC STUDIES: 10/11/2017, WBC 7.7, hemoglobin and hematocrit 11.3 and 34.6, and platelets 206. Sodium 141, potassium 3.8, chloride 108, CO2 27, anion gap 11, BUN 8, creatinine 0.5, GFR greater than 60, glucose 90, calcium 9.5, and magnesium 2.0. LFTs are normal. Troponin peak is 0.05, which is indeterminate. RPR is nonreactive. CAT scan of the chest, abdomen, and pelvis was reviewed. EKG was reviewed. Echocardiogram, which was done yesterday, was reviewed. IMPRESSION: 1. Questionable and possible syncope. 2. Recurrent falls versus mechanical fall. 3. Sinus tachycardia. 4. Dementia with acute exacerbation. 5. Toxic metabolic encephalopathy with confusional state. 6. Normocytic anemia. 7. Anorexia. 8. Weight loss. 9. Severe symptomatic hypokalemia. 10. Questionable and possible subclinical hyperthyroidism with elevated thyroxine. 11. Hypokalemia. 12. Indeterminate troponin. 13. Proteinuria, microscopic hematuria. 14. Acute exacerbation of dementia. 15. Biapical pulmonary scarring. 16. Biliary ductal dilatation, probably secondary to cholecystectomy. 17. Right renal cyst. 18. Colonic diverticulosis and duodenal diverticulum. 19. Urinary bladder diverticulum with questionable bladder outlet obstruction. 20. Possible dilated endometrial canal or thickened endometrium with central low-density area in the uterus. 21. Right mastectomy with history of right breast carcinoma. 22. Left ventricular ejection fraction of 58%. 23. Trace mitral regurgitation with thickened mitral valve. 24. Thickened tricuspid regurgitation with mild tricuspid regurgitation. 25. Thickened tricuspid valve with mild tricuspid regurgitation. 26. Feeding dysfunction. 27. Anorexia. 28. Deconditioning. 29. Gait dysfunction. 30. Syncope status post fall. 31. Alzheimer's type dementia. 32. Severe cognitive impairment. PLAN: 1. At this time, the patient has been ordered serial labs. 2. Current consultation Cardiology, Gastroenterology, and Neurology. The patient was unable to do an MRI, we will reorder the MRI with premedications with Benadryl and Ativan. The patient is on Aricept 10 mg at bedtime, Ecotrin 81 mg daily, Inderal 10 mg daily for tachycardia. The patient was started on K-Dur 20 mEq twice a day, Lovenox 40 mg subcu daily, Periactin 4 mg twice a day, and Protonix 20 mg twice a day. The patient is on Risperdal 1 mg at bedtime. The patient is on 0.9 normal saline at 80 mL an hour, Tapazole 5 mg daily, and thiamine 100 mg daily. In addition, carotid Doppler, pelvic ultrasound, transvaginal ultrasound, thyroid ultrasound, MRI, MRA of the brain, and EEG is pending. Repeat EKG pending. The patient is on regular diet, out of bed, physical therapy, occupational therapy ordered. SCDs ordered. At present, the patient's further management will be dependent upon the patient's clinical condition, hemodynamic status and as per the patient response to therapeutic intervention as per the patient's diagnostic test results and as per recommendation by all the physicians involved in the care of the patient. Overall prognosis is guarded to poor. The patient's daughter informed of above. Sergei Siddiqui MD
--- NOTE | 2017-10-11 18:06 | PN ---
DATE: REASON FOR CONSULTATION: Syncope, cardiac evaluation (covering Dr. Modesto Kee). SUBJECTIVE: The patient lying flat in bed, not in apparent distress. No chest pain. No shortness of breath. No palpitation. OBJECTIVE: GENERAL: Not in apparent distress. Lying flat in the bed. VITAL SIGNS: Temperature afebrile, heart rate 104, blood pressure 111/62. HEENT: PERRLA. Extraocular muscles intact. NECK: Supple. No carotid bruits or thyromegaly. CHEST: Clear to auscultation. HEART: S1 and S2, regular. ABDOMEN: Soft. EXTREMITIES: Clubbing and cyanosis negative. LABORATORY DATA: Blood workup as follows: WBC 11.7, hemoglobin 11.8, hematocrit 34.6, platelet count 206. Chemistry shows sodium 141, potassium 3.8, chloride 108, CO2 17, anion gap 11, creatinine 0.5, troponin 0.05, indeterminate range. TSH 1.34, total cholesterol 152, LDL 76, HDL 52, triglycerides 72. Troponin 0.04, 0.04, 0.04, indeterminate range. Echocardiography done yesterday that revealed ejection fraction 55%, trace mitral regurgitation, mild tricuspid regurgitation, RV systolic pressure 37, no pericardial effusion. IMPRESSION: Status post falls, status post syncope, dementia, hypokalemia on admission, hypertension, hyperlipidemia, borderline troponin, indeterminate range. EKG shows normal sinus, no acute ST-T changes noted. Repeat EKG done today that shows sinus tachycardia with occasional premature ventricular contractions, low voltage baseline artifact. Most likely the symptoms hypokalemia. Follow up enzymes. I will transfer care tomorrow to Dr. Modesto Kee. Continue deep venous thrombosis prophylaxis and supplement potassium. Kaycee Sherman MD
[2017-10-11] MEDS: DONEPEZIL HCL 10 MG PO SCH (21:19)
[2017-10-12] MEDS: Pantoprazole 20 mg EC Tab PO SCH ×2 (05:16→19:17)
[2017-10-12 06:53] LABS: BASO # 0.04 K/mm3 (0.0-2.0); BASO % 0.4 % (0.0-3.0); EOS # 0.3 (0.0-0.7); EOS % 2.8 % (1.5-5.0); GRAN # 7.06 (1.4-6.5); GRAN % 70.5 % (50.0-68.0); LYMPH # 2.2 (1.2-3.4); LYMPH % 21.6 % (22.0-35.0); MEAN CELL VOLUME 90.3 fl (80.0-105.0); MEAN CORPUSCULAR HEMOGLOBIN 29.3 pg (25.0-35.0); MEAN CORPUSCULAR HGB CONC 32.4 g/dl (31.0-37.0); MEAN PLATELET VOLUME 9.8 fl (7.0-11.0); MONO # 0.5 (0.1-0.6); MONO % 4.7 % (1.0-6.0); RBC 4.44 10^6/uL (3.5-6.1); RED CELL DISTRIBUTION WIDTH 13.4 % (11.5-14.5)
[2017-10-12 07:34] LABS: ALB/GLOB RATIO 1.2 (1.1-1.8); ALBUMIN 3.7 g/dL (3.0-4.8); ALT/SGPT 17 U/L (7-56); AST/SGOT 25 U/L (14-36); BILIRUBIN,DIRECT 0.4 mg/dL (0.0-0.4); BLOOD UREA NITROGEN 10 mg/dL (7-21); CALCIUM 9.7 mg/dL (8.4-10.5); GFR AFRICAN-AMERICAN > 60; GFR NON-AFRICAN AMERICAN > 60
[2017-10-12] MEDS: Levalbuterol 0.63 MG/3 ML Inhal Soln UD IH SCH ×2 (09:03→17:05)
--- NOTE | 2017-10-12 09:26 | US ---
PROCEDURE: Bilateral carotid artery duplex ultrasound HISTORY: Carotid stenosis syncope PHYSICIAN(S): Modesto Bennett MD. TECHNIQUE: Duplex sonography and color-flow Doppler were used to evaluate the carotid bifurcations and limited segments of the vertebral arteries bilaterally. FINDINGS: There is mild smooth hypoechoic plaque noted at the carotid bifurcations bilaterally. The peak systolic velocity in the proximal right internal carotid artery is 85 cm/sec. This corresponds to a 20 to 39% proximal right ICA stenosis. Normal systolic velocities are noted in the proximal right external carotid artery. There is antegrade flow in the right vertebral artery. The peak systolic velocity in the proximal left internal carotid artery is 83 cm/sec. This corresponds to a 20 to 39% proximal left ICA stenosis. Normal systolic velocities are noted in the proximal left external carotid artery. There is antegrade flow in the dominant left vertebral artery. IMPRESSION: 1. Bilateral 20-39% proximal ICA stenoses. 2. Antegrade flow in both vertebral arteries.
[2017-10-12] MEDS: Potassium Chloride 20 mEq ER Tab PO SCH ×2 (10:03→19:16)
[2017-10-12] MEDS: Enoxaparin 40 mg Syringe SC SCH (10:03)
[2017-10-12] MEDS: methIMAzole 5 MG TAB PO SCH (10:03)
--- NOTE | 2017-10-12 10:06 | RAD ---
HISTORY: Congestive heart failure, wheezing. Portable study 08:29. COMPARISON: 10/10/2017. FINDINGS: LUNGS: No active pulmonary disease. PLEURA: No significant pleural effusion identified, no pneumothorax apparent. CARDIOVASCULAR: Normal. OSSEOUS STRUCTURES: No significant abnormalities. VISUALIZED UPPER ABDOMEN: Normal. OTHER FINDINGS: None. IMPRESSION: No active disease. No significant interval change compared to the prior examination(s).
--- NOTE | 2017-10-12 12:20 | PN ---
DATE: 10/12/2017 CARDIOLOGY FOLLOWUP NOTE SUBJECTIVE: The patient with an episode of shortness of breath this morning. She received Lasix and is currently asymptomatic. She is comfortable in bed. OBJECTIVE: VITAL SIGNS: Blood pressure is 126/82, heart rate is 95, normal sinus rhythm. NECK: Negative JVD. LUNGS: Without rales. HEART: S1 and S2. EXTREMITIES: Without edema. LABORATORY DATA: BUN and creatinine are unremarkable. The ProBNP was 1340. Hemoglobin is 13. IMPRESSION: 1. Transient and mild diastolic left ventricular congestive heart failure. 2. Improvement with one dose of IV Lasix. 3. History of syncope without an identifiable cardiac cause. 4. Dementia. 5. Weakness. PLAN: Given these findings, we will keep the patient on low-dose Lasix once a day. We will observe on telemetry for next 24 hours. Modesto Kee MD
[2017-10-12] MEDS ORDERED: DiphenhydrAMINE 50 mg/ml Inj IVP ONE (12:44)
--- NOTE | 2017-10-12 15:09 | US ---
HISTORY: ??hyperthyroidism TECHNIQUE: Sonographic evaluation of the thyroid gland. COMPARISON: FINDINGS: RIGHT LOBE: Measures 1.0 x 1.1 x 2.6 cm. Heterogenous echotexture, normal vascularity Nodules: None LEFT LOBE: Measures 1.3 x 1.6 x 3.6 cm. Heterogenous echotexture, normal vascularity Nodules: None ISTHMUS: Measures 0.23 cm. Nodules: None OTHER FINDINGS: None . IMPRESSION: Atrophic heterogeneous gland bilaterally. No focal abnormalities in the thyroid gland.
--- NOTE | 2017-10-12 15:09 | CP.PCM.PN ---
Subjective - Date & Time of Evaluation Date of Evaluation: 10/12/17 Time of Evaluation: 15:05 - Subjective Subjective: Annette Tse, PGY1, Medicine Progress Note for Dr Siddiqui: Patient seen and examined at bedside. This AM, pt started complaining of SOb and found to be wheezing and mild basilar crackles on physical exam. Her IVF was stopped, CXR neg for any infiltrates, given duonebs, started on 2L nc, and given Lasix 20 mg IVx1. Pt comfortable breathing without distress when examined later after duoneb treatment. Denies fever, chills, nausea, vomiting, further syncopal episodes/fall. Objective - Vital Signs/Intake and Output Vital Signs (last 24 hours): Temp Pulse Resp BP Pulse Ox 98.3 F 88 18 106/67 93 L 10/12/17 12:00 10/12/17 12:00 10/12/17 12:00 10/12/17 12:00 10/12/17 06:00 Intake and Output: 10/12/17 10/12/17 06:59 18:59 Intake Total 800 Balance 800 - Medications Medications: Current Medications Aspirin (Ecotrin) 81 mg PO DAILY [facility] Last Admin: 10/12/17 10:03 Dose: 81 mg Cyproheptadine HCl (Periactin) 4 mg PO BID [facility] Last Admin: 10/12/17 10:04 Dose: 4 mg Enoxaparin Sodium (Lovenox) 40 mg SC DAILY [facility] PRN Reason: Protocol Last Admin: 10/12/17 10:03 Dose: 40 mg Furosemide (Lasix) 20 mg PO DAILY [facility] Levalbuterol HCl (Xopenex) 0.63 mg IH [id number] [facility] Last Admin: 10/12/17 09:03 Dose: 0.63 mg Methimazole (Tapazole) 5 mg PO DAILY [facility] Last Admin: 10/12/17 10:03 Dose: 5 mg Donepezil Hcl [ Aricept Odt] 10 Mg ( Home Med) 10 mg PO HS [facility] Last Admin: 10/11/17 21:19 Dose: Not Given Pantoprazole Sodium (Protonix Ec Tab) 20 mg PO 0600,1600 [facility] Last Admin: 10/12/17 05:16 Dose: 20 mg Potassium Chloride (K-Dur 20 Meq Er Tab) 20 meq PO BID [facility] Last Admin: 10/12/17 10:03 Dose: 20 meq Propranolol HCl (Inderal) 10 mg PO BID [facility] Last Admin: 10/12/17 10:04 Dose: 10 mg Risperidone (Risperdal Tab) 1 mg PO HS [facility] PRN Reason: Protocol Last Admin: 10/11/17 21:15 Dose: 1 mg Thiamine HCl (Vitamin B1 Tab) 100 mg PO DAILY [facility] Last Admin: 10/12/17 10:03 Dose: 100 mg - Labs Labs: 10/12/17 06:20 10/12/17 06:20 PT 11.8 SECONDS (9.4-12.5) 10/10/17 05:30 INR 1.03 (0.93-1.08) 10/10/17 05:30 APTT 31.0 Seconds (25.1-36.5) 10/10/17 05:30 - Constitutional Appears: Non-toxic, No Acute Distress - Head Exam Head Exam: ATRAUMATIC, NORMOCEPHALIC - Eye Exam Eye Exam: EOMI, PERRL Pupil Exam: PERRL - ENT Exam ENT Exam: Mucous Membranes Moist - Neck Exam Neck Exam: Full ROM - Respiratory Exam Respiratory Exam: Clear to Ausculation Bilateral. absent: Accessory Muscle Use , Rhonchi, Wheezes, Respiratory Distress, Stridor - Cardiovascular Exam Cardiovascular Exam: RRR, +S1, +S2. absent: Murmur - GI/Abdominal Exam GI & Abdominal Exam: Soft, Normal Bowel Sounds. absent: Rigid, Tenderness, Mass , Organomegaly, Rebound - Extremities Exam Extremities Exam: absent: Calf Tenderness, Pedal Edema - Neurological Exam Neurological Exam: Alert, Awake Neuro motor strength exam: Left Upper Extremity: 4, Right Upper Extremity: 4, Left Lower Extremity: 4, Right Lower Extremity: 4 - Psychiatric Exam Psychiatric exam: Normal Affect - Skin Skin Exam: Dry, Normal Color, Warm Assessment and Plan - Assessment and Plan (Free Text) Assessment: 82 year old female with PMH Alzheimer's, asthma, HTN, HLD, UC, chronic UTI, presents s/p fall at home: Fall: mechanical vs syncopal episode - 2/2 neuro vs arrhythmias vs valvular abnormalities vs thyroid etiology - Pt afebrile, hemodynamically stable. - CT head neg - CT chest/abd/pelvis shows dilated endometrial canal or thickened endometrium in a postmenopausal woman. F/u pelvic/transvaginal US. - Echo showed ED 58%. MIld TR. RVSP 37 mmHg - TSH 1.34, T4 14.5, FT4 1.59, f/u thyroid US. - Neuro consulted. Appreciate recs. - Cardio consulted. Appreciate recs. Wants noninvasive workup. - Carotid US neg for significant stenosis - b/l 20-39% proximal ICA stenosis. - Pending EEG SOB: - Pt on IVF since admission - BNP elevated 1340 - CXR neg for any infiltrates. + pulm venous congestion. - Stopped IVF, started duonebs, given 1 time dose IV lasix 20 mg. - Pt had relief of symptoms. Will keep on low dose IV lasix 20 mg daily for mild diastolic CHF as per Dr Kee. - Cont to monitor. Elevated trops: - Trop 0.04->0.05->0.05->0.04 - Cardio consulted. Appreciate recs. Likely noninvasive workup. Hx of Alzheimer's: - C/w home med Donepezil, risperidone PPX: lovenox, protonix F/u PT/OT eval. Discussed with Dr Siddiqui. Annette Tse, PGY1
--- NOTE | 2017-10-12 19:03 | PN ---
DATE: 10/12/2017 NEUROLOGY FOLLOWUP The patient is an 82-year-old woman. CHIEF COMPLAINT: Questionable syncope. SUBJECTIVE: The patient is seen and examined at the bedside. No acute events overnight. Cardiology note reviewed and appreciated. The patient has some shortness of breath and some wheezing and her IV fluids are stopped, one dose of Lasix was given, the patient did well. No further syncopal episodes. Carotid Doppler showed 20 to 39% proximal ICA stenosis bilaterally with antegrade flow to vertebral arteries. Electroencephalogram showed bilateral cerebral dysfunction. No evidence of epileptiform activity. CAT scan of the head showed no acute intracranial abnormality. MRI of the brain is pending. PAST MEDICAL HISTORY: Alzheimer's type dementia, hypertension, hospital-acquired chronic UTI. REVIEW OF SYSTEMS: A 14-point of review of systems is negative except in the HPI. FAMILY HISTORY: Noncontributory. ALLERGIES: CODEINE, SULFA, AND ASPIRIN. MEDICATIONS: Reviewed by nurse per reconciliation sheet. SOCIAL HISTORY: No illicit drug use, smoking or EtOH abuse. FAMILY HISTORY: Noncontributory. PHYSICAL EXAMINATION: VITAL SIGNS: Temperature of 98.3, pulse rate of 88, blood pressure 106/67, respiratory rate of 18, oxygen saturation 94% via room air. GENERAL: The patient is sitting up in bed, in no acute distress. HEENT: Head is atraumatic and normocephalic. PERRLA. Extraocular muscles intact. NECK: Supple. No JVD. No adenopathy noted. LUNGS: Clear to auscultation. No adventitious sounds. HEART: S1, S2. Normal rate and rhythm. No murmurs, rubs, or gallops. ABDOMEN: Soft, nontender, and nondistended. Bowel sounds present. EXTREMITIES: No clubbing. No cyanosis. Peripheral pulses are 2+ felt bilaterally. NEUROLOGIC: The patient is alert and oriented to person, place, not much to month or year. Recall in 5 minutes is 0/3. Poor attention span and slow thought process, very disorganized thinking. Cranial nerves II-XII are intact. Motor exam: Slightly increased tone throughout. Moves all extremities equally. No pronator drift seen. Sensory exam: Light touch, pinprick, proprioception, and vibration intact. DTRs are 1+ throughout. Coordination: [id number] intact. Gait is deferred for now. LABORATORY DATA: Reviewed. Carotid Doppler shows no significant hemodynamic stenosis. There is proximal ICA stenosis of 20 to 39%. ASSESSMENT AND PLAN: This is an 82-year-old woman with history of dementia Alzheimer type, hypertension, dyslipidemia, hospital-acquired chronic urinary tract infection, status post fall, who is unsure whether was a mechanical fall or rather she had passed out. At this time, she is very decondition and severe cognitive impairment. Her electroencephalogram shows bilateral cerebral dysfunction. No evidence of any epileptiform activity. RECOMMENDATIONS: At this time, recommend: 1. Aricept 10 mg p.o. at bedtime and 100 mg of thiamine daily for dementia. 2. Delirium precautions and avoid nighttime interruptions. 3. MRI of the brain is pending. 4. She needs Physical Therapy/Occupational Therapy and likely subacute rehab for deconditioned state. Once again, thank you for this followup. No further workup needed at this time. The patient is stable. Otilio Rod MD
--- NOTE | 2017-10-12 20:28 | CON ---
GASTROENTEROLOGY CONSULTATION DATE: 10/12/2017 REQUESTING PHYSICIAN: Sergei Siddiqui MD REASON FOR CONSULTATION: I have been asked to see this 82-year-old female for weight loss and anorexia. The patient was admitted to the hospital with weakness and syncope. The patient is awake, but appears to be confused. She has a history of dementia. PAST MEDICAL HISTORY: Notable for hyperlipidemia, dementia, UTI, and ulcerative colitis. SOCIAL HISTORY: She lives at home with her daughter. There is no history of cigarette smoking or alcohol use. FAMILY HISTORY: Noncontributory. REVIEW OF SYSTEMS: A 14-point review of systems is unobtainable as the patient is confused. MEDICATIONS AT HOME: Include Risperdal, Aricept, Tapazole 5 mg daily, Inderal 10 mg once a day, and Lasix 20 mg daily. PHYSICAL EXAMINATION: GENERAL: Elderly female lying in bed in no acute distress. VITAL SIGNS: Reveal temperature of 98.4, blood pressure 126/82, and heart rate of 110. HEENT: Reveal bitemporal wasting. Conjunctivae pale. NECK: Supple. CHEST: Reveal distant breath sounds. HEART: Reveals regular rate and rhythm. ABDOMEN: Soft and nontender. EXTREMITIES: Show no edema. LABORATORY DATA: Reveal white blood cell count 10 and hemoglobin 13. Chemistries reveal normal electrolytes, BUN 10 and creatinine 0.5. AST, ALT, and alk phos was normal. Serum albumin is 3.7. CT scan of the chest, abdomen and pelvis reveal mild scarring of both lung apices, no acute findings in the abdomen with nonspecific dilated endometrial canal. IMPRESSION AND PLAN: 1. This is an 82-year-old female with poor oral intake, admitted with syncope, weight loss, and history of hyperthyroidism. The patient does have dementia and her poor oral intake is most likely secondary to the dementia, this is certainly contributing to her weight loss. Recommendations are given her dementia would treat the patient conservatively. 2. A transvaginal pelvic ultrasound has been ordered for evaluation of her dilated endometrial canal. Her long-term prognosis is poor. Continue supportive care. Wilmar Avitia MD
--- NOTE | 2017-10-12 20:42 | CARD ---
APPROVED REPORT EKG Measurement Heart [id number] <Conclusion> Sinus tachycardia Low voltage QRS Cannot rule out Anterior infarct, age undetermined Abnormal ECG
[2017-10-12] MEDS: DONEPEZIL HCL 10 MG PO SCH (22:37)
--- NOTE | 2017-10-13 00:33 | PN ---
DATE: 10/12/2017 SUBJECTIVE: assembling inspector, the patient developed audible wheezing. The patient was found by the nurse to have audible wheezing. Patient was found to be tachycardic, disoriented, trying to get out of the bed. The patient was found to be confused. At that point, the patient's IV fluid was stopped. The patient was given Lasix stat dose, nebulizer treatment was instituted. The patient was seen lying in the bed in room 375, bed one.. The patient at present has improved clinically. PHYSICAL EXAMINATION: VITAL SIGNS: T-max 98.3, 80, 99 112, 117. The patient's heart rate was 99, 92, 112, 97, 110 in the morning. Blood pressure was 110/73, 141/78, 144/78, 126/82, respirations 18, O2 sat 100%. HEENT: Head: Normocephalic, atraumatic. HEENT examination shows pinkish conjunctivae. Anicteric sclerae. Dry oral mucosa. No neck rigidity. Soft carotid bruit. CHEST: Kyphosis. LUNGS: Shows occasional rhonchi, upper lung montgomery, occasional wheezing, left more than the right. CARDIOVASCULAR: S1, S2, regular rhythm. Questionable soft systolic murmur left sternal border, right second intercostal space, left second intercostal space. ABDOMEN: Soft. Positive bowel sound. Positive right-sided mastectomy. Positive cholecystectomy noted. No hepatosplenomegaly noted. No guarding. No rigidity. No rebound tenderness. GENITALIA: Female. RECTAL: Deferred. EXTREMITIES: Shows no pitting edema, no calf numbness, no Homans' sign. NEUROLOGIC: The patient is alert, awake, responsive, confused, disoriented. Cranial nerves II-XII limited. Gait examination could not be tested MUSCULOSKELETAL: Shows a body mass index of 21. DIAGNOSTICS: 10/12/2017, WBC 10.0, hemoglobin/hematocrit 13 and 40.1, platelets 233. Granulocytes 70. Sodium 144, potassium 3.9, chloride 107, CO2 28, anion gap 12, BUN 10, creatinine 0.5, GFR greater than 60, glucose 102, calcium 9.7, magnesium 2.0. LFTs are normal. BNP is 1340. RPR is negative. The patient's ABGs ordered but not done yet for unknown reason. Chest x-ray was ordered stat for evaluation of wheezing which was negative. The thyroid ultrasound was done which shows atrophic heterogenous thyroid gland bilaterally. Pelvic ultrasound pending. Echocardiogram was reviewed. EKG was done which shows sinus rhythm, sinus tachycardia low voltage. IMPRESSION AND PLAN: 1. Transient episode of wheezing and shortness of breath and tachycardia, tachypnea. 2. Possible right-sided diastolic congestive heart failure. 3. Questionable syncope. 4. Status post multiple falls. 5. Questionable recurrent mechanical fall. 6. Tachycardia. 7. Transient hypoxemia. 8. Dementia. 9. Possible delirium. 10. Granulocytosis. 11. Normocytic anemia. 12. Severe symptomatic hypokalemia. 13. Hyperglycemia. 14. Questionable subclinical hyperthyroidism with elevated thyroxine. 15. Proteinuria, microscopic hematuria. 16. Atrophic heterogeneous thyroid gland. 17. Biapical pulmonary scarring. 18. Biliary ductal dilatation secondary to cholecystectomy. 19. Right renal cyst. 20. Colonic diverticulosis. 21. Duodenal diverticulum. 22. Bladder diverticulum secondary to clot. 23. Bladder outlet obstruction. 24. Suspicious, dilated endometrial canal or thickened endometrium with low density area in the uterus centrally. 25. Right mastectomy. 26. Deconditioning. 27. Left ventricular ejection fraction of 58%. 28. Thickened mitral valve with trace mitral regurgitation. 29. Thickened tricuspid valve with mild tricuspid regurgitation and right ventricular systolic pressure of 37 mmHg. 30. Sinus tachycardia. 31. Alzheimer type dementia. 32. Status post recurrent fall. 33. Severe cognitive impairment. 34. Bilateral cerebral dysfunction. 35. Transient mild diastolic right-sided congestive heart failure. 36. Anorexia. 37. Weight loss. 38. Poor oral intake. 39. Status post fall. 40. Indeterminate troponin. PLAN: At this time, the patient's IV fluids stopped. The patient has been put on nebulizer treatments, serial labs ordered. CONSULTATION: Cardiology, Gastroenterology, Neurology. Case referred for TCU evaluation. The patient's MRI could not be done because of the patient's uncooperativeness. The patient was given Aricept. The patient is on Aricept 10 mg at bedtime, Ecotrin 81 mg daily, Inderal increased to 10 mg twice a day. The patient is on K-Dur 20 mEq twice a day. The patient is started on Lasix 20 mg p.o. daily by Cardiology. The patient is on Lovenox 40 mg subcu daily, Periactin 4 mg twice a day, Protonix 40 mg daily, Risperdal 1 mg at bedtime. The patient is on Tapazole 5 mg daily, thiamine 100 mg daily, Xopenex nebulizer 0.63 mg every 6 hours. The patient's transvaginal pelvic ultrasound is pending. EEG results is pending. The patient has been ordered out of bed physical therapy, occupational therapy. The patient's pelvic ultrasound is done, results pending. At present, the patient was seen by physical therapist. Their recommendation are to Transitional Care Unit. At present, the patient's further diagnostic testing will be reviewed when available. The patient's further management will be dependent upon the patient's clinical condition, hemodynamic status and as per the patient response to therapeutic intervention. The patient's case was discussed. It was discussed with Gastroenterology. Overall, prognosis recommended to be poor. The patient's case was discussed with Cardiology and Neurology. The patient's overall prognosis appear to be guarded. The patient's condition, diagnosis, overall guarded prognosis was explained very clearly to the patient's daughter, , on day of admission and yesterday. All questions concerned answered to their satisfaction. Dictated and electronically signed, not read. Sergei Siddiqui MD
--- NOTE | 2017-10-13 06:22 | EEG ---
PAST MEDICAL HISTORY: This is an 82-year-old female with past medical history of dementia, hypertension, and the patient passed out. MEDICATIONS: Aricept. DESCRIPTION: Background activity of this tracing was composed of 7 to 8 cycles per second. Activity, small amount of beta activity and large amount of theta activity was seen in the tracing. Drowsiness was composed of mixed beta and theta activity. Photic stimulation did not change the record. IMPRESSION: Bilateral cerebral dysfunction, diffuse. Jaciel MD Marcel
[2017-10-13] MEDS: Pantoprazole 20 mg EC Tab PO SCH ×2 (06:32→18:59)
[2017-10-13 07:20] LABS: BASO # 0.06 K/mm3 (0.0-2.0); BASO % 0.8 % (0.0-3.0); EOS # 0.3 (0.0-0.7); EOS % 3.6 % (1.5-5.0); GRAN # 4.32 (1.4-6.5); HEMOGLOBIN 12.2 g/dL (12.0-16.0); LYMPH # 2.2 (1.2-3.4); LYMPH % 30.4 % (22.0-35.0); MEAN CELL VOLUME 89.7 fl (80.0-105.0); MEAN CORPUSCULAR HEMOGLOBIN 29.3 pg (25.0-35.0); MEAN CORPUSCULAR HGB CONC 32.7 g/dl (31.0-37.0); MEAN PLATELET VOLUME 9.7 fl (7.0-11.0); MONO # 0.5 (0.1-0.6); MONO % 6.2 % (1.0-6.0); RBC 4.16 10^6/uL (3.5-6.1); RED CELL DISTRIBUTION WIDTH 13.3 % (11.5-14.5); WHITE BLOOD COUNT 7.3 10^3/ul (4.5-11.0)
[2017-10-13 07:46] LABS: ALB/GLOB RATIO 1.2 (1.1-1.8); ALBUMIN 3.6 g/dL (3.0-4.8); ALT/SGPT 21 U/L (7-56); AST/SGOT 29 U/L (14-36); BILIRUBIN,DIRECT 0.4 mg/dL (0.0-0.4); BLOOD UREA NITROGEN 18 mg/dL (7-21); GFR AFRICAN-AMERICAN > 60; GFR NON-AFRICAN AMERICAN > 60
[2017-10-13] MEDS: Levalbuterol 0.63 MG/3 ML Inhal Soln UD IH SCH ×2 (08:19→20:26)
--- NOTE | 2017-10-13 10:50 | CP.PCM.PN ---
Subjective - Date & Time of Evaluation Date of Evaluation: 10/13/17 Time of Evaluation: 10:47 - Subjective Subjective: Annette Tse, PGY1, Medicine Progress Note for Dr Siddiqui: Patient seen and examined at bedside. No acute events overnight. Pt drowsy this AM, secondary to likely Ativan/benadryl. Will obtain CT head. Denies sob, cp, dizziness, nausea, vomiting. Pt tolerating food well. Objective - Vital Signs/Intake and Output Vital Signs (last 24 hours): Temp Pulse Resp BP Pulse Ox 98.7 F 98 H 18 119/66 98 10/13/17 06:00 10/13/17 06:00 10/13/17 06:00 10/13/17 06:00 10/13/17 06:00 Intake and Output: 10/13/17 10/13/17 06:59 18:59 Intake Total 0 Balance 0 - Medications Medications: Current Medications Aspirin (Ecotrin) 81 mg PO DAILY [facility] Last Admin: 10/12/17 10:03 Dose: 81 mg Cyproheptadine HCl (Periactin) 4 mg PO BID [facility] Last Admin: 10/12/17 19:16 Dose: 4 mg Enoxaparin Sodium (Lovenox) 40 mg SC DAILY [facility] PRN Reason: Protocol Last Admin: 10/12/17 10:03 Dose: 40 mg Furosemide (Lasix) 20 mg PO DAILY [facility] Levalbuterol HCl (Xopenex) 0.63 mg IH [id number] [facility] Last Admin: 10/13/17 08:19 Dose: 0.63 mg Methimazole (Tapazole) 5 mg PO DAILY [facility] Last Admin: 10/12/17 10:03 Dose: 5 mg Donepezil Hcl [ Aricept Odt] 10 Mg ( Home Med) 10 mg PO HS [facility] Last Admin: 10/12/17 22:37 Dose: Not Given Pantoprazole Sodium (Protonix Ec Tab) 20 mg PO 0600,1600 [facility] Last Admin: 10/13/17 06:32 Dose: 20 mg Potassium Chloride (K-Dur 20 Meq Er Tab) 20 meq PO BID [facility] Last Admin: 10/12/17 19:16 Dose: 20 meq Propranolol HCl (Inderal) 10 mg PO BID [facility] Last Admin: 10/12/17 19:16 Dose: 10 mg Risperidone (Risperdal Tab) 1 mg PO [facility] PRN Reason: Protocol Last Admin: 10/12/17 22:37 Dose: 1 mg Thiamine HCl (Vitamin B1 Tab) 100 mg PO DAILY [facility] Last Admin: 10/12/17 10:03 Dose: 100 mg - Labs Labs: 10/13/17 06:30 10/13/17 06:30 PT 11.8 SECONDS (9.4-12.5) 10/10/17 05:30 INR 1.03 (0.93-1.08) 10/10/17 05:30 APTT 31.0 Seconds (25.1-36.5) 10/10/17 05:30 - Additional Findings Additional findings: - Constitutional Appears: Non-toxic, No Acute Distress - Head Exam Head Exam: ATRAUMATIC, NORMOCEPHALIC - Eye Exam Eye Exam: EOMI, PERRL Pupil Exam: PERRL - ENT Exam ENT Exam: Mucous Membranes Moist - Neck Exam Neck Exam: Full ROM - Respiratory Exam Respiratory Exam: Clear to Ausculation Bilateral. absent: Accessory Muscle Use , Rhonchi, Wheezes, Respiratory Distress, Stridor - Cardiovascular Exam Cardiovascular Exam: RRR, +S1, +S2. absent: Murmur - GI/Abdominal Exam GI & Abdominal Exam: Soft, Normal Bowel Sounds. absent: Rigid, Tenderness, Mass , Organomegaly, Rebound - Extremities Exam Extremities Exam: absent: Calf Tenderness, Pedal Edema - Neurological Exam Neurological Exam: Alert, Awake Neuro motor strength exam: Left Upper Extremity: 4, Right Upper Extremity: 4, Left Lower Extremity: 4, Right Lower Extremity: 4 - Psychiatric Exam Psychiatric exam: Normal Affect - Skin Skin Exam: Dry, Normal Color, Warm Assessment and Plan - Assessment and Plan (Free Text) Assessment: 82 year old female with PMH Alzheimer's, asthma, HTN, HLD, UC, chronic UTI, presents s/p fall at home: Fall: mechanical vs syncopal episode - 2/2 neuro vs arrhythmias vs valvular abnormalities vs thyroid etiology - Pt afebrile, hemodynamically stable. - CT head neg - CT chest/abd/pelvis shows dilated endometrial canal or thickened endometrium in a postmenopausal woman. F/u pelvic/transvaginal US. - Echo showed ED 58%. Mild TR. RVSP 37 mmHg - TSH 1.34, T4 14.5, FT4 1.59, thyroid US shows atrophic heterogenous gland b/ l. No nodules. - Neuro consulted. Appreciate recs. - Cardio consulted. Appreciate recs. Wants noninvasive workup. - Carotid US neg for significant stenosis - b/l 20-39% proximal ICA stenosis. - EEG shows diffuse bilateral cerebral dysfunction SOB, improved: 2/2 fluid overload vs mild transient diastolic CHF - Pt on IVF since admission, discontinued 10/12. - BNP elevated 1340 - CXR neg for any infiltrates. + pulm venous congestion. - Stopped IVF, started duonebs, given 1 time dose IV lasix 20 mg. - Pt had relief of symptoms. Maintain on IV lasix 20 mg daily for mild diastolic CHF as per Dr Kee. - Cont to monitor. Elevated trops: - Trop 0.04->0.05->0.05->0.04 - Cardio consulted. Appreciate recs. Likely noninvasive workup. Hx of Alzheimer's: - C/w home med Donepezil, risperidone PPX: lovenox, protonix Pt eval recommends TCU. Awaiting OT eval. Discussed with Dr Siddiqui. Annette Tse, PGY1
[2017-10-13] MEDS: Potassium Chloride 20 mEq ER Tab PO SCH ×2 (12:25→18:58)
[2017-10-13] MEDS: Enoxaparin 40 mg Syringe SC SCH (12:25)
[2017-10-13] MEDS: methIMAzole 5 MG TAB PO SCH (12:26)
--- NOTE | 2017-10-13 12:55 | CT ---
PROCEDURE: CT HEAD WITHOUT CONTRAST. HISTORY: drowsy COMPARISON: None available. TECHNIQUE: Axial computed tomography images were obtained through the head/brain without intravenous contrast. Radiation dose: Total exam DLP = 679 mGy-cm. This CT exam was performed using one or more of the following dose reduction techniques: Automated exposure control, adjustment of the mA and/or kV according to patient size, and/or use of iterative reconstruction technique. FINDINGS: HEMORRHAGE: No intracranial hemorrhage. BRAIN: No mass effect or edema. No atrophy or chronic microvascular ischemic changes. VENTRICLES: Unremarkable. No hydrocephalus. CALVARIUM: Unremarkable. PARANASAL SINUSES: Unremarkable as visualized. No significant inflammatory changes. MASTOID AIR CELLS: Unremarkable as visualized. No inflammatory changes. OTHER FINDINGS: None. IMPRESSION: No acute findings
--- NOTE | 2017-10-13 13:50 | PN ---
DATE: 10/13/2017 CARDIOLOGY FOLLOWUP NOTE SUBJECTIVE: The patient is without shortness of breath, but is lethargic in bed. PHYSICAL EXAMINATION: VITAL SIGNS: Blood pressure is 119/66 and heart rate is in the 90s. NECK: Negative JVD. LUNGS: Without rales. HEART: Reveals S1 and S2. EXTREMITIES: Without edema. LABORATORY DATA: BUN and creatinine are 18 and 0.6. Hemoglobin is 12.2. IMPRESSION 1. Status post fall. 2. Good left ventricular function. 3. History of mild diastolic congestive heart failure. 4. Dementia. 5. Weakness. PLAN: 1. Given these findings, there are no cardiac arrhythmias noted. 2. From a cardiac perspective, we will DC telemetry. We will DC her Lasix for now. Modesto Kee MD
--- NOTE | 2017-10-13 16:12 | PN ---
DATE: 10/13/2017 SUBJECTIVE: Patient is lying in bed with the daughter at the bedside. Daughter states that the patient's oral intake has been poor. Daughter also states that the patient's dementia has been getting worse over the last several months interns of poor oral intake and poor memory. She remains weak, lying in bed. MEDICATIONS: Currently include donepezil 10 mg once a day, Ecotrin 81 mg once a day, propranolol 10 mg b.i.d., potassium chloride 20 mEq b.i.d., Lovenox 40 mg subcu once a day, Periactin 4 mg b.i.d., Protonix 20 mg b.i.d., Risperdal 1 mg h.s., Tapazole 5 mg daily, thiamine 100 mg daily and levalbuterol 0.63 mg q.6 hours as a nebulizer treatment. OBJECTIVE: VITAL SIGNS: Reveal 98.7, blood pressure 119/66, heart rate of 98. GENERAL: The patient is lying in bed. She is awake but she is slow to respond to verbal stimuli. HEENT: Reveal sclerae to be white. Conjunctivae pink. NECK: Supple. CHEST: Reveal lungs to be clear. HEART: Reveals regular rate and rhythm. ABDOMEN: Soft, nontender. EXTREMITIES: Show no edema. LABORATORY DATA: Reveal white blood cell count 7.3, hemoglobin 12.2. Chemistries reveal normal electrolytes. Albumin is 3.6. IMPRESSION: An 82-year-old female with anorexia, weight loss, failure to thrive, worsening Alzheimer's dementia. I have discussed the patient's prognosis with the daughter who was at the bedside. Her prognosis is extremely poor. RECOMMENDATIONS: 1. Consider making the patient DNR. 2. Continue comfort measures. 3. Consider palliative care. Wilmar Avitia MD
--- NOTE | 2017-10-13 16:44 | CP.PCM.PN ---
Subjective - Date & Time of Evaluation Date of Evaluation: 10/13/17 Time of Evaluation: 16:45 - Subjective Subjective: DATE: 10/13/2017 NEUROLOGY FOLLOWUP The patient is an 82-year-old woman. CHIEF COMPLAINT: Questionable syncope. SUBJECTIVE: The patient is seen and examined at the bedside. No acute events overnight. Cardiology note reviewed and appreciated. The patient has some shortness of breath and some wheezing and her IV fluids are stopped, one dose of Lasix was given, the patient did well. No further syncopal episodes. Carotid Doppler showed 20 to 39% proximal ICA stenosis bilaterally with antegrade flow to vertebral arteries. Electroencephalogram showed bilateral cerebral dysfunction. No evidence of epileptiform activity. Repeat CAT scan of the head showed no acute intracranial abnormality. She occasionally goes into a catonic state and sun downs. She drank kristyn deyvi in front of me today and followed commands. PAST MEDICAL HISTORY: Alzheimer's type dementia, hypertension, hospital-acquired chronic UTI. REVIEW OF SYSTEMS: A 14-point of review of systems is negative except in the HPI. FAMILY HISTORY: Noncontributory. ALLERGIES: CODEINE, SULFA, AND ASPIRIN. MEDICATIONS: Reviewed by nurse per reconciliation sheet. SOCIAL HISTORY: No illicit drug use, smoking or EtOH abuse. FAMILY HISTORY: Noncontributory. PHYSICAL EXAMINATION: VITAL SIGNS: Reviewed. GENERAL: The patient is sitting up in bed, in no acute distress. HEENT: Head is atraumatic and normocephalic. PERRLA. Extraocular muscles intact. NECK: Supple. No JVD. No adenopathy noted. LUNGS: Clear to auscultation. No adventitious sounds. HEART: S1, S2. Normal rate and rhythm. No murmurs, rubs, or gallops. ABDOMEN: Soft, nontender, and nondistended. Bowel sounds present. EXTREMITIES: No clubbing. No cyanosis. Peripheral pulses are 2+ felt bilaterally. NEUROLOGIC: The patient is alert and oriented to person, place, not much to month or year. Recall in 5 minutes is 0/3. Poor attention span and slow thought process, very disorganized thinking. Cranial nerves II-XII are intact. Motor exam: Slightly increased tone throughout. Moves all extremities equally. No pronator drift seen. Sensory exam: Light touch, pinprick, proprioception, and vibration intact. DTRs are 1+ throughout. Coordination: [id number] intact. Gait is deferred for now. LABORATORY DATA: Reviewed. Carotid Doppler shows no significant hemodynamic stenosis. There is proximal ICA stenosis of 20 to 39%. ASSESSMENT AND PLAN: This is an 82-year-old woman with history of dementia Alzheimer type, hypertension, dyslipidemia, hospital-acquired chronic urinary tract infection, status post fall, who is unsure whether was a mechanical fall or rather she had passed out. At this time, she is very decondition and severe cognitive impairment. Her electroencephalogram shows bilateral cerebral dysfunction. No evidence of any epileptiform activity. She occasionally becomes catatonic which can be part of her dementia and also sundowns. She followed commands for me. RECOMMENDATIONS: At this time, recommend: 1. Aricept 10 mg p.o. at bedtime and 100 mg of thiamine bid for dementia. 2. Delirium precautions and avoid nighttime interruptions. 3. She needs Physical Therapy/Occupational Therapy and likely subacute rehab for deconditioned state. Once again, thank you for this followup. No further workup needed at this time. The patient is stable. Otilio Rod MD Objective - Vital Signs/Intake and Output Vital Signs (last 24 hours): Temp Pulse Resp BP Pulse Ox 98.5 F 86 20 131/76 98 10/13/17 12:00 10/13/17 12:25 10/13/17 12:00 10/13/17 12:25 10/13/17 06:00 Intake and Output: 10/13/17 10/13/17 06:59 18:59 Intake Total 0 Balance 0 - Medications Medications: Current Medications Aspirin (Ecotrin) 81 mg PO DAILY [facility] Last Admin: 10/13/17 12:25 Dose: Not Given Cyproheptadine HCl (Periactin) 4 mg PO BID [facility] Last Admin: 10/13/17 12:26 Dose: Not Given Enoxaparin Sodium (Lovenox) 40 mg SC DAILY [facility] PRN Reason: Protocol Last Admin: 10/13/17 12:25 Dose: Not Given Levalbuterol HCl (Xopenex) 0.63 mg IH [id number] [facility] Last Admin: 01/09/18 08:19 Dose: 0.63 mg Methimazole (Tapazole) 5 mg PO DAILY [facility] Last Admin: 10/13/17 12:26 Dose: Not Given Donepezil Hcl [ Aricept Odt] 10 Mg ( Home Med) 10 mg PO HS [facility] Last Admin: 10/12/17 22:37 Dose: Not Given Pantoprazole Sodium (Protonix Ec Tab) 20 mg PO 0600,1600 [facility] Last Admin: 10/13/17 06:32 Dose: 20 mg Potassium Chloride (K-Dur 20 Meq Er Tab) 20 meq PO BID [facility] Last Admin: 10/13/17 12:25 Dose: Not Given Propranolol HCl (Inderal) 10 mg PO BID [facility] Last Admin: 10/13/17 12:25 Dose: Not Given Risperidone (Risperdal Tab) 1 mg PO [facility] PRN Reason: Protocol Last Admin: 10/12/17 22:37 Dose: 1 mg Thiamine HCl (Vitamin B1 Tab) 100 mg PO BID [facility] - Labs Labs: 10/13/17 06:30 10/13/17 06:30 PT 11.8 SECONDS (9.4-12.5) 10/10/17 05:30 INR 1.03 (0.93-1.08) 10/10/17 05:30 APTT 31.0 Seconds (25.1-36.5) 10/10/17 05:30
[2017-10-13] MEDS: Dextrose 5%/0.45% NS 1,000 ML IV SCH (17:01)
--- NOTE | 2017-10-13 21:36 | PN ---
DATE: 10/13/2017 SUBJECTIVE: The patient is seen lying in the bed in room 375, bed 1. The patient is arousable, responsive, awake. Overnight nurse's notes were reviewed. The patient's orthostatics were done yesterday which was negative. Overnight, the patient was trying to climb out of the bed. The patient was reoriented by the nurses. The patient slept during the night. PHYSICAL EXAMINATION VITAL SIGNS: T-max is 98.8, pulse 86, 90, 98, 85, 86, and 85, blood pressure 131/76, 119/66, 111/69, 109/67, respiration 18, O2 sat 98 to 97-93%. HEAD: Normocephalic, atraumatic. HEENT: Shows pink conjunctivae. Dry oral mucosa. Positive facial muscle wasting. No neck rigidity. Soft carotid bruit. CHEST: Positive kyphosis. Positive right mastectomy. CARDIOVASCULAR: Shows S1, S2, regular rhythm. Questionable soft systolic murmur left sternal border, right second intercostal space. ABDOMEN: Soft. Positive bowel sound. Healed surgical scar of cholecystectomy. No hepatosplenomegaly. No guarding. No rigidity. No rebound tenderness. GENITALIA: Female. RECTAL: Deferred. EXTREMITY: Shows no pitting, no calf tenderness, no Homans' sign. NEUROLOGIC: The patient is alert, awake, responsive, confused, disoriented. MUSCULOSKELETAL: Shows a body mass index of 21. DIAGNOSTICS: 10/13/2017, WBC 7.3, hemoglobin/hematocrit 12.2, 37.3, platelet 244. Sodium 143, potassium 3.7, chloride 103, CO2 30, anion gap 14, BUN 18, creatinine 0.6, GFR greater than 60, glucose 92, calcium 10.0, magnesium 2.0. LFTs are normal. BNP is elevated at 1340, which was yesterday. RPR is negative. Microbiology: Negative blood bank. The patient's chest x-ray was done yesterday, the results are available, which was done for the episode of wheezing which was negative. Pelvic ultrasound results are pending. The patient had a CT of the head done for drowsiness, which was negative. EEG was done which shows bilateral diffuse bilateral cerebral dysfunction. IMPRESSION AND PLAN: 1. Questionable possible syncope. 2. Mechanical fall with recurrent falls and gait dysfunction. 3. Alzheimer's type dementia. 4. Tachycardia. 5. Severe deconditioning. 6. Severe cognitive impairment. 7. Diffuse bilateral cerebral dysfunction. 8. Sundowning with dementia and episodic catatonia. 9. Left ventricle ejection fraction of 58%. 10. Thickened mitral valve with trace mitral regurgitation. 11. Mild tricuspid regurgitation with right ventricular systolic pressure of 37 mmHg. 12. Severe gait dysfunction. 13. Diffuse bilateral cerebral dysfunction on EEG. 14. Anorexia. 15. Dementia. 16. Severe symptomatic hypokalemia. 17. History of psychosis and hallucinations. 18. Possible and questionable subclinical hyperthyroidism. PLAN: At this time, the patient has been ordered repeat labs. CURRENT CONSULTATION: 1. Cardiology. 2. Neurology. 3. Gastroenterology. 4. Referral to TCU done. CURRENT MEDICATIONS: 1. D5 half normal at 60 mL an hour. 2. Aricept 10 mg at bedtime. 3. Ecotrin 81 mg daily. 4. Imdur 10 mg twice a day. 5. K-Dur 20 mEq twice a day. 6. Lovenox 40 mg subcu daily. 7. Periactin 4 mg twice a day. 8. Protonix 20 mg daily. 9. Risperdal 1 mg at bedtime, which will be held for sedation. 10. Tapazole 5 mg daily. 11. Thiamine 100 mg twice a day. 12. Xopenex nebulizer every 6 hours, hold for sedation. Plan at this time, the patient's Risperdal will be held for sedation. The patient has been ordered out of bed, Physical Therapy, Occupational Therapy, ambulation therapy ordered. The patient seen by Javascript Web Developer. The patient seen by physical therapist yesterday. Their recommendation is TCU. The patient is seen by a Javascript Web Developer and case management. The patient's daughter is requesting home care upon discharge. The patient's overall prognosis is guarded to poor. The patient's management discussed with all subspecialty involving the care of the patient. The patient's daughter has been updated about the patient's overall guarded to poor prognosis which she acknowledged and understand. Dictated and electronically signed, not read. Signing off, Sergei Siddiqui MD [facility] # [id number]
--- NOTE | 2017-10-13 22:32 | CARD ---
APPROVED REPORT EKG Measurement Heart [id number] <Conclusion> Normal sinus rhythm Normal ECG
[2017-10-14] MEDS: DONEPEZIL HCL 10 MG PO SCH
[2017-10-14] MEDS: Levalbuterol 0.63 MG/3 ML Inhal Soln UD IH SCH ×3 (01:39→14:30)
[2017-10-14] MEDS: Pantoprazole 20 mg EC Tab PO SCH ×2 (05:18→16:29)
[2017-10-14 07:16] LABS: BASO # 0.04 K/mm3 (0.0-2.0); BASO % 0.6 % (0.0-3.0); EOS # 0.3 (0.0-0.7); EOS % 4.2 % (1.5-5.0); GRAN # 4.24 (1.4-6.5); GRAN % 61.1 % (50.0-68.0); HEMOGLOBIN 12.3 g/dL (12.0-16.0); LYMPH % 28.2 % (22.0-35.0); MEAN CELL VOLUME 89.6 fl (80.0-105.0); MEAN CORPUSCULAR HEMOGLOBIN 29.7 pg (25.0-35.0); MEAN CORPUSCULAR HGB CONC 33.2 g/dl (31.0-37.0); MEAN PLATELET VOLUME 9.3 fl (7.0-11.0); MONO # 0.4 (0.1-0.6); MONO % 5.9 % (1.0-6.0); RBC 4.14 10^6/uL (3.5-6.1); RED CELL DISTRIBUTION WIDTH 13.1 % (11.5-14.5); WHITE BLOOD COUNT 6.9 10^3/ul (4.5-11.0)
[2017-10-14 07:28] VITALS: O2SAT 99
[2017-10-14 07:59] LABS: ALB/GLOB RATIO 1.3 (1.1-1.8); ALBUMIN 3.6 g/dL (3.0-4.8); ALT/SGPT 22 U/L (7-56); AST/SGOT 25 U/L (14-36); BILIRUBIN,DIRECT 0.3 mg/dL (0.0-0.4); BLOOD UREA NITROGEN 21 mg/dL (7-21); CALCIUM 9.9 mg/dL (8.4-10.5); GFR AFRICAN-AMERICAN > 60; GFR NON-AFRICAN AMERICAN > 60
--- NOTE | 2017-10-14 10:18 | CP.PCM.PN ---
Subjective - Date & Time of Evaluation Date of Evaluation: 10/14/17 Time of Evaluation: 10:15 - Subjective Subjective: Annette Tse, PGY1, Medicine Progress Note for Dr Siddiqui: Patient seen and examined at bedside. No acute events overnight. Pt remains lethargic, all sedatives held. Last Ativan/benadryl use 10/12 at 12:[address] head yesterday negative for any acute changes. Pt responds to verbal stimuli, but sleepy. As per nurse, pt ate very little yesterday. Dr Avitia at bedside yesterday recommended palliative, DNR status. Pt's daughter at bedside, refused. Pt breathing well, removed NC. Bedside staff aware, to monitor clinically. Objective - Vital Signs/Intake and Output Vital Signs (last 24 hours): Temp Pulse Resp BP Pulse Ox 98.1 F 83 18 105/52 L 99 10/14/17 06:00 10/14/17 06:00 10/14/17 06:00 10/14/17 06:00 10/14/17 06:00 Intake and Output: 10/14/17 10/14/17 06:59 18:59 Intake Total 80 Output Total 0 Balance 80 - Medications Medications: Current Medications Aspirin (Ecotrin) 81 mg PO DAILY [facility] [place] Last Admin: 10/13/17 12:25 Dose: Not Given Cyproheptadine HCl (Periactin) 4 mg PO BID [facility] [place] Last Admin: 10/13/17 18:59 Dose: Not Given Enoxaparin Sodium (Lovenox) 40 mg SC DAILY [facility] [place] PRN Reason: Protocol Last Admin: 10/13/17 12:25 Dose: Not Given Dextrose/Sodium Chloride (Dextrose 5%/0.45% Ns 1000 Ml) 1,000 mls @ 60 mls/hr IV .[id number] [facility] [place] Last Admin: 10/13/17 17:01 Dose: 60 mls/hr Levalbuterol HCl (Xopenex) 0.63 mg IH [id number] [facility] [place] Last Admin: 10/14/17 08:26 Dose: 0.63 mg Methimazole (Tapazole) 5 mg PO DAILY [facility] [place] Last Admin: 10/13/17 12:26 Dose: Not Given Donepezil Hcl [ Aricept Odt] 10 Mg ( Home Med) 10 mg PO HS [facility] [place] Last Admin: 10/14/17 00:00 Dose: Not Given Pantoprazole Sodium (Protonix Ec Tab) 20 mg PO 0600,1600 [facility] [place] Last Admin: 10/14/17 05:18 Dose: 20 mg Potassium Chloride (K-Dur 20 Meq Er Tab) 20 meq PO TID [facility] [place] Propranolol HCl (Inderal) 10 mg PO BID [facility] [place] Last Admin: 10/13/17 18:58 Dose: Not Given Risperidone (Risperdal Tab) 1 mg PO HS [facility] [place] PRN Reason: Protocol Thiamine HCl (Vitamin B1 Tab) 100 mg PO BID [facility] [place] Last Admin: 10/13/17 18:59 Dose: Not Given - Labs Labs: 10/14/17 06:30 10/14/17 06:30 PT 11.8 SECONDS (9.4-12.5) 10/10/17 05:30 INR 1.03 (0.93-1.08) 10/10/17 05:30 APTT 31.0 Seconds (25.1-36.5) 10/10/17 05:30 - Constitutional Appears: Non-toxic, No Acute Distress, Cachectic - Head Exam Head Exam: ATRAUMATIC, NORMOCEPHALIC - Eye Exam Eye Exam: EOMI, PERRL. absent: Conjunctival injection, Scleral icterus Pupil Exam: PERRL - ENT Exam ENT Exam: Mucous Membranes Moist - Neck Exam Neck Exam: Full ROM - Respiratory Exam Respiratory Exam: Clear to Ausculation Bilateral. absent: Accessory Muscle Use , Wheezes - Cardiovascular Exam Cardiovascular Exam: RRR, +S1, +S2. absent: Murmur - GI/Abdominal Exam GI & Abdominal Exam: Soft, Normal Bowel Sounds. absent: Distended, Firm, Mass, Organomegaly, Rebound - Extremities Exam Extremities Exam: absent: Calf Tenderness, Pedal Edema - Back Exam Back Exam: NORMAL INSPECTION - Neurological Exam Neurological Exam: Alert, Awake, Oriented x3 - Psychiatric Exam Psychiatric exam: Flat Affect - Skin Skin Exam: Dry, Normal Color, Warm Assessment and Plan - Assessment and Plan (Free Text) Assessment: 82 year old female with PMH Alzheimer's, asthma, HTN, HLD, UC, chronic UTI, presents for fall/syncope, weight loss, anorexia. Head CT and [place] CT chest/abd/ pelvis negative except for endometrial wall thickening. Pending Pelvic/ transvaginal US, likely malignancy? No arrhythmias noted on cardiac monitoring, echocardiogram neg for heart failure or valvular abnormalities. EEG shows diffuse bilateral cerebral dysfunction. PT recommends TCU. However, pt's daughter would like to take her home. Given patient's worsening mental status (2 /2 likely dementia and aging), consider palliative care eval: Fall: mechanical, worsening mental status (2/2 dementia) - Pt afebrile, hemodynamically stable. - CT head neg - CT chest/abd/pelvis shows dilated endometrial canal or thickened endometrium in a postmenopausal woman. F/u pelvic/transvaginal US. - Echo showed ED 58%. Mild TR. RVSP 37 mmHg - TSH 1.34, T4 14.5, FT4 1.59, thyroid US shows atrophic heterogenous gland b/ l. No nodules. - Neuro consulted. Appreciate recs. C/w aricept. - Cardio consulted. Appreciate recs. Wants noninvasive workup. - Carotid US neg for significant stenosis - b/l 20-39% proximal ICA stenosis. - EEG shows diffuse bilateral cerebral dysfunction - Consider palliative consult SOB, resolved: 2/2 fluid overload, mild transient diastolic CHF - Pt on IVF since admission, discontinued 10/12. - BNP elevated 1340. CXR neg for any infiltrates. + pulm venous congestion. - Stopped IVF, started duonebs, given 1 time dose IV lasix 20 mg. Pt had relief of symptoms. - Cont to monitor. Elevated trops: - Trop 0.04->0.05->0.05->0.04 - Cardio consulted. Appreciate recs. noninvasive workup. Hx of Alzheimer's: - C/w home med Donepezil, risperidone PPX: lovenox, protonix Pt eval recommends TCU (however, daughter wants to take pt home - with more home services). Awaiting OT eval. Patient seen and discussed with Dr Siddiqui. Annette Tse, PGY1
[2017-10-14] MEDS: Potassium Chloride 20 mEq ER Tab PO SCH ×2 (10:56→15:00)
[2017-10-14] MEDS: Dextrose 5%/0.45% NS 1,000 ML IV SCH (10:57)
[2017-10-14] MEDS: methIMAzole 5 MG TAB PO SCH (10:57)
[2017-10-14] MEDS: Enoxaparin 40 mg Syringe SC SCH (12:36)
[2017-10-14 16:25] VITALS: BP 110/66; PULSE 89; RESP 19; TEMP 97.7
--- NOTE | 2017-10-14 16:38 | CP.PCM.DIS ---
Provider - Provider Date of Admission: 10/10/17 07:12 Attending physician: Sergei Siddiqui MD Primary care physician: Sergei Siddiqui MD Consults: Chilango Rod Time Spent in preparation of Discharge (in minutes): 35 Diagnosis - Discharge Diagnosis (1) Dementia Status: Acute (2) Syncope Status: Acute (3) Altered mental status Status: Acute Hospital Course - Lab Results Lab Results: Most Recent Lab Values WBC 6.9 10^3/ul (4.5-11.0) 10/14/17 06:30 RBC 4.14 10^6/uL (3.5-6.1) 10/14/17 06:30 Hgb 12.3 g/dL (12.0-16.0) 10/14/17 06:30 Hct 37.1 % (36.0-48.0) 10/14/17 06:30 MCV 89.6 fl (80.0-105.0) 10/14/17 06:30 MCH 29.7 pg (25.0-35.0) 10/14/17 06:30 MCHC 33.2 g/dl (31.0-37.0) 10/14/17 06:30 RDW 13.1 % (11.5-14.5) 10/14/17 06:30 Plt Count 231 10^3/uL (120.0-450.0) 10/14/17 06:30 MPV 9.3 fl (7.0-11.0) 10/14/17 06:30 Gran % 61.1 % (50.0-68.0) 10/14/17 06:30 Lymph % (Auto) 28.2 % (22.0-35.0) 10/14/17 06:30 Starke % (Auto) 5.9 % (1.0-6.0) 10/14/17 06:30 Eos % (Auto) 4.2 % (1.5-5.0) 10/14/17 06:30 Baso % (Auto) 0.6 % (0.0-3.0) 10/14/17 06:30 Gran # 4.24 (1.4-6.5) 10/14/17 06:30 Lymph # 2.0 (1.2-3.4) 10/14/17 06:30 Starke # 0.4 (0.1-0.6) 10/14/17 06:30 Eos # 0.3 (0.0-0.7) 10/14/17 06:30 Baso # 0.04 K/mm3 (0.0-2.0) 10/14/17 06:30 PT 11.8 SECONDS (9.4-12.5) 10/10/17 05:30 INR 1.03 (0.93-1.08) 10/10/17 05:30 APTT 31.0 Seconds (25.1-36.5) 10/10/17 05:30 Sodium 140 mmol/L (132-148) 10/14/17 06:30 Potassium 3.6 mmol/L (3.6-5.0) 10/14/17 06:30 Chloride 101 mmol/L (98-107) 10/14/17 06:30 Carbon Dioxide 29 mmol/L (21-33) 10/14/17 06:30 Anion Gap 13 (10-20) 10/14/17 06:30 BUN 21 mg/dL (7-21) 10/14/17 06:30 Creatinine 0.5 mg/dl (0.7-1.2) L 10/14/17 06:30 Est GFR ( Amer) > 60 10/14/17 06:30 Est GFR (Non-Af Amer) > 60 10/14/17 06:30 Random Glucose 100 mg/dL (70-110) 10/14/17 06:30 Hemoglobin A1c 5.5 % (4.2-6.5) 10/10/17 07:30 Calcium 9.9 mg/dL (8.4-10.5) 10/14/17 06:30 Magnesium 2.0 mg/dL (1.7-2.2) 10/14/17 06:30 Total Bilirubin 0.8 mg/dL (0.2-1.3) 10/14/17 06:30 Direct Bilirubin 0.3 mg/dL (0.0-0.4) 10/14/17 06:30 AST 25 U/L (14-36) 10/14/17 06:30 ALT 22 U/L (7-56) 10/14/17 06:30 Alkaline Phosphatase 69 U/L (38-126) 10/14/17 06:30 Ammonia < 9 umol/L (9-33) L 10/10/17 07:30 Lactate Dehydrogenase 388 U/L (333-699) 10/10/17 05:30 Total Creatine Kinase 76 U/L (35-230) 10/10/17 15:05 Troponin I 0.04 ng/mL 10/10/17 15:05 NT-Pro-B Natriuret Pep 1340 pg/mL (0-450) H 10/12/17 06:20 Total Protein 6.5 g/dL (5.8-8.3) 10/14/17 06:30 Albumin 3.6 g/dL (3.0-4.8) 10/14/17 06:30 Globulin 2.9 gm/dL 10/14/17 06:30 Albumin/Globulin Ratio 1.3 (1.1-1.8) 10/14/17 06:30 Triglycerides 73 mg/dL (35-160) 10/10/17 07:30 Cholesterol 152 mg/dL (130-200) 10/10/17 07:30 LDL Cholesterol Direct 76 mg/dL (0-129) 10/10/17 07:30 HDL Cholesterol 54 mg/dL (29-60) 10/10/17 07:30 Free T4 1.59 ng/dL (0.78-2.19) 10/10/17 07:30 Thyroxine (T4) 14.5 ug/dL (5.5-11.0) H 10/10/17 07:30 TSH 3rd Generation 1.34 mIU/mL (0.46-4.68) 10/10/17 07:30 Urine Color Yellow (YELLOW) 10/10/17 06:10 Urine Appearance Clear (CLEAR) 10/10/17 06:10 Urine pH 6.0 (4.7-8.0) 10/10/17 06:10 Ur Specific Stollings >= 1.030 (1.005-1.035) 10/10/17 06:10 Urine Protein 30 mg/dL (<30 mg/dL) H 10/10/17 06:10 Urine Glucose (UA) Negative mg/dL (NEGATIVE) 10/10/17 06:10 Urine Ketones 15 mg/dL (NEGATIVE) H 10/10/17 06:10 Urine Blood Trace-intact (NEGATIVE) H 10/10/17 06:10 Urine Nitrate Negative (NEGATIVE) 10/10/17 06:10 Urine Bilirubin Negative (NEGATIVE) 10/10/17 06:10 Urine Urobilinogen 0.2 E.U./dL (<1 E.U./dL) 10/10/17 06:10 Ur Leukocyte Esterase Negative Lorin/uL (NEGATIVE) 10/10/17 06:10 Urine RBC 1 - 3 /hpf (0-2) 10/10/17 06:10 Urine WBC 2 - 5 /hpf (0-6) 10/10/17 06:10 Ur Epithelial Cells 0 - 2 /hpf (0-5) 10/10/17 06:10 RPR Nonreactive (NONREACTIVE) 10/10/17 11:00 - Hospital Course Hospital Course: 82 year old female, whose past medical history includes hyperlipidemia, hypertension, ulcerative colitis, chronic UTI, and Alzheimer's disease, who presents to the emergency department brought in by daughter status post fall that night. Daughter states she woke up tonight to check on the patient and found her lying on the floor. Daughter is unsure how the patient fell. Daughter also notes patient fell again while walking in to the ER. Limited HPI and ROS secondary to patient's dementia. Pt's EKG and tele monitoring in hospital did not reveal any arrythmias. Echo showed no valvular problems, normal EF. Thyroid function and thyroid US showed no abnormalities. Head CT was negative for any acute changes, EEG showed diffuse bilateral cerebral dysfunction. CT chest/abd/ pelvis showed incidental finding of thickened endometrium. In the interim of the hospital course, pt received ATivan and Benadryl to undergo CT scans and other imaging tests. Pt drowsy the next day, head CT obtained did not show any acute changes. Pt's status likely from worsening dementia. PT eval was obtained and recommended TCU. Discharge Exam - Additional Findings Additional findings: - Constitutional Appears: Non-toxic, No Acute Distress, Cachectic - Head Exam Head Exam: ATRAUMATIC, NORMOCEPHALIC - Eye Exam Eye Exam: EOMI, PERRL. absent: Conjunctival injection, Scleral icterus Pupil Exam: PERRL - ENT Exam ENT Exam: Mucous Membranes Moist - Neck Exam Neck Exam: Full ROM - Respiratory Exam Respiratory Exam: Clear to Ausculation Bilateral. absent: Accessory Muscle Use , Wheezes - Cardiovascular Exam Cardiovascular Exam: RRR, +S1, +S2. absent: Murmur - GI/Abdominal Exam GI & Abdominal Exam: Soft, Normal Bowel Sounds. absent: Distended, Firm, Mass, Organomegaly, Rebound - Extremities Exam Extremities Exam: absent: Calf Tenderness, Pedal Edema - Back Exam Back Exam: NORMAL INSPECTION - Neurological Exam Neurological Exam: somnolent, responds to verbal stimuli - Psychiatric Exam Psychiatric exam: Flat Affect - Skin Skin Exam: Dry, Normal Color, Warm Discharge Plan - Follow Up Plan Condition: STABLE Disposition: REHAB FACILITY/REHAB UNIT Patient education suggested?: Yes Instructions: Urinary Tract Infection in Women (DC), Urinary Tract Infection in Men (DC), Hypokalemia (DC), Hypokalemia (GEN), Syncope (DC), Syncope (GEN), Dysuria (GEN), Altered Mental Status (GEN) Additional Instructions: DISCHARGE TO TCU UNDER DR.HAQUE MURPHY DISCHARGE MEDS PER Dec Referrals: Sergei Siddiqui MD [Primary Care Provider] - 1 Day (DISCHARGE TO TCU UNDER SERVICE DISCHARGE MEDS PER Dec)
--- NOTE | 2017-10-15 04:50 | DS ---
HISTORY OR PRESENT ILLNESS: The patient is now accepted to TCU according to the social insurance specialist. The patient is seen in room# 245, bed# 1. The patient is lying in the bed, getting cleaned up by the PCP. PHYSICAL EXAMINATION: GENERAL: The patient is awake, responsive, alert, confused and disoriented, but the patient is responsive. VITAL SIGNS: T-max 98.2. Heart rate 83-93; blood pressure 108/62, 105/62; respirations 18, O2 sat 99%. INTAKE AND OUTPUT: Not documented. HEENT: Head is normocephalic, atraumatic. [place] conjunctivae. Dry oral mucosa. Positive facial muscle wasting. NECK: No neck rigidity. No jugular venous distention. No audible carotid bruit. No jugular venous distention. CHEST: Kyphosis. Positive right mastectomy. No rales, crackles, or wheezing. Today, occasional rhonchi upper lung montgomery anteriorly. CARDIOVASCULAR: S1, S2, regular rhythm. Positive systolic murmur, right second intercostal space, left sternal border, left second intercostal space. ABDOMEN: Soft. Positive bowel sounds. No hepatosplenomegaly noted. No organomegaly noted. No rebound tenderness. No costovertebral angle tenderness. GENITALIA: Female. RECTAL: Examination is deferred. EXTREMITIES: No pitting edema. No calf numbness. No Homans' sign. MUSCULOSKELETAL: Examination shows a decreased muscle mass. NEUROLOGIC: The patient is alert, awake, oriented x1. Cranial nerves II-XII limited. Gait examination not tested. VASCULAR: Palpable pulses. PSYCHIATRIC: Examination positive for dementia. DIAGNOSTICS: On 10/14/2017, WBC 6.9, hemoglobin/hematocrit 12.3/37.1, platelet 231,000. Sodium 140, potassium 3.6, chloride 101, CO2 29, anion gap 13, BUN 21, creatinine 0.5, glucose 100, calcium 9.9, magnesium 2.0. LFTs are normal. Microbiology negative. FINAL IMPRESSION, PLAN, AND DISCHARGE DIAGNOSES: 1. Toxic metabolic encephalopathy with increasing confusion and disorientation. 2. Recurrent fall versus mechanical fall. 3. Questionable syncope. 4. Tachycardia. 5. Acute exacerbation of dementia. 6. Transient normocytic anemia. 7. Transient granulocytosis. 8. Severe symptomatic hypokalemia. 9. Possible right-sided diastolic congestive heart failure with elevated beta natriuretic peptide. 10. Possible subclinical hyperthyroidism. 11. Proteinuria, microscopic hematuria. 12. Diffuse bilateral cerebral dysfunction. 13. Questionable syncope. 14. Severe cognitive impairment. 15. Deconditioning. 16. Gait dysfunction. 17. Anorexia. 18. Tachycardia. 19. Hypokalemia. 20. Cachexia with weight loss. PLAN: At this time, patient's case was discussed with the Health Plan Advisor. The patient has been accepted to Transitional Care Unit according to the social insurance specialist. We will discharge the patient to TCU under Dr. Siddiqui's service. DISCHARGE MEDICATIONS: The patient's discharge medications are as follows; 1. The patient is on D5 half-normal saline at 60 mL an hour. 2. Aricept 10 mg at bedtime. 3. Inderal 10 mg twice a day. 4. K-Dur 20 mEq three times a day. 5. Lovenox 40 mg subcu daily. 6. Periactin 4 mg twice a day. 7. Protonix 40 mg daily. 8. Risperdal 1 mg at bedtime. 9. Tapazole 5 mg daily. 10. Thiamine 100 mg twice a day. 11. Xopenex nebulizer 0.63 mg every 6 hours. Sergei Siddiqui MD
--- NOTE | 2017-10-15 10:19 | US ---
HISTORY: ABNORMAL ENDOMETRIUM COMPARISON: None available. TECHNIQUE: Transabdominal pelvic ultrasound was performed. FINDINGS: UTERUS: Measures 0.6 x 3.6 x 3.7 cm. Anteverted and normal in size. No fibroid or other mass lesion seen. ENDOMETRIUM: Measures 2.4 mm in diameter. Evaluation is limited due to technically limited. CERVIX: No cervical abnormality identified. RIGHT OVARY: Measures 2.1 x 1.5 x 2.3 cm. No solid mass. Normal flow. LEFT OVARY: Not visualized. FREE FLUID: No significant free fluid noted. OTHER FINDINGS: None. IMPRESSION: Technically limited examination. The endometrium was not well evaluated on this examination. The patient will return for a endovaginal examination.
--- NOTE | 2017-10-15 12:20 | PN ---
DATE: 10/15/2017 CARDIOLOGY FOLLOWUP NOTE SUBJECTIVE: The patient is in bed without shortness breath and without chest pain, but remains weak and lethargic. PHYSICAL EXAMINATION: VITAL SIGNS: Blood pressure is 93/54 with the heart rate is in the 80s. NECK: Negative JVD. LUNGS: Without rales. HEART: Reveals S1 and S2. EXTREMITIES: Without edema. LABORATORY DATA: BUN and creatinine are unremarkable. Hemoglobin is 12.3. IMPRESSION 1. Lethargy. 2. Weakness. 3. Anemia. 4. Status post fall. 5. Resolution of mild congestive heart failure. 6. Dementia. PLAN: Given these findings, I have given these findings, given these findings, the patient will benefit from extensive physical therapy. There is no Lasix necessary. Modesto Kee MD
== END 2017-10-14 19:22 | DRG 640 ==
LOC: ED 03:59 → ERH 07:12 → 3RSO 09:18 → 2A 10-14 10:02
PROVIDERS: ADMIT Internal Medicine; ATTEND Internal Medicine
PROC: 3E0F7GC Introduction of Other Therapeutic Substance into Respiratory Tract, Via Natural or Artificial Opening (ICD-10-PCS; principal; 2017-10-12)
DX: E87.6 Hypokalemia (principal); G92 Toxic encephalopathy; E86.0 Dehydration; R64 Cachexia; E46 Unspecified protein-calorie malnutrition; K51.90 Ulcerative colitis, unspecified, without complications; I36.1 Nonrheumatic tricuspid (valve) insufficiency; I50.30 Unspecified diastolic (congestive) heart failure; I11.0 Hypertensive heart disease with heart failure; I65.23 Occlusion and stenosis of bilateral carotid arteries; E05.90 Thyrotoxicosis, unspecified without thyrotoxic crisis or storm; D64.9 Anemia, unspecified; R29.6 Repeated falls; G30.9 Alzheimer's disease, unspecified; F02.80 Dementia in other diseases classified elsewhere, unspecified severity, without behavioral disturbance, psychotic disturbance, mood disturbance, and anxiety; E78.5 Hyperlipidemia, unspecified; R26.9 Unspecified abnormalities of gait and mobility; K57.50 Diverticulosis of both small and large intestine without perforation or abscess without bleeding; R62.7 Adult failure to thrive; J45.909 Unspecified asthma, uncomplicated; M81.0 Age-related osteoporosis without current pathological fracture; N32.3 Diverticulum of bladder; M41.9 Scoliosis, unspecified; N28.1 Cyst of kidney, acquired; R31.29 Other microscopic hematuria; Z85.3 Personal history of malignant neoplasm of breast; Z91.81 History of falling; Z87.440 Personal history of urinary (tract) infections; Z90.11 Acquired absence of right breast and nipple

== ENCOUNTER 2017-10-14 18:31 | Inpatient (IN) | payer OTHER, BC ==
[2017-10-14 20:20] VITALS: BMI 21.0
[2017-10-14] MEDS: Dextrose 5%/0.45% NS 1,000 ML IV SCH (21:02)
[2017-10-14] MEDS ORDERED: Non Formulary Medication (Donepezil Hcl [Aricept Odt] 10 MG) PO SCH (22:00)
[2017-10-15] MEDS: Levalbuterol 0.63 MG/3 ML Inhal Soln UD IH SCH ×4 (01:16→22:06)
[2017-10-15] MEDS: Pantoprazole 20 mg EC Tab PO SCH ×2 (05:20→17:49)
[2017-10-15] MEDS: Enoxaparin 40 mg Syringe SC SCH ×2 (05:20→10:18)
[2017-10-15] MEDS: Potassium Chloride 20 mEq ER Tab PO SCH ×3 (10:18→17:46)
[2017-10-15] MEDS: methIMAzole 5 MG TAB PO SCH (10:19)
--- NOTE | 2017-10-15 10:23 | US ---
HISTORY: abnormal endometrium COMPARISON: 02/24/2017 pacs TECHNIQUE: Transvaginal pelvic ultrasound was performed. FINDINGS: UTERUS: Measures 7.3 x 2.8 x 4.2 cm anteverted, normal in size and appearance. No fibroid or other mass lesion seen. ENDOMETRIUM: The endometrial cavity is fluid filled, distended and measures 16 mm. No discrete mass is identified on the current examination CERVIX: No cervical abnormality identified. RIGHT OVARY: There is a 2.0 x 1.4 x 1.9 cm simple cyst in the right adnexa. LEFT OVARY: Not visualized. FREE FLUID: No significant free fluid noted. OTHER FINDINGS: None. IMPRESSION: Fluid-filled distended endometrial cavity without evidence of discrete mass. 2.0 cm simple cyst in the right adnexa. Clinical correlation and follow-up is advised and short-term follow-up ultrasound is recommended to assess stability of the right adnexal cyst.
[2017-10-15] MEDS: Dextrose 5%/0.45% NS 1,000 ML IV SCH (13:34)
--- NOTE | 2017-10-15 14:19 | CP.PCM.HP ---
History of Present Illness - History of Present Illness History of Present Illness: Annette Tse, H&P for Dr Siddiqui: 82 year old female, whose past medical history includes hyperlipidemia, hypertension, ulcerative colitis, chronic UTI, and Alzheimer's disease, who presents to the emergency department brought in by daughter status post fall that night. Daughter states she woke up tonight to check on the patient and found her lying on the floor. Daughter is unsure how the patient fell. Daughter also notes patient fell again while walking in to the ER. Limited HPI and ROS secondary to patient's dementia. Pt's EKG and tele monitoring in hospital admission did not reveal any arrythmias. Echo showed no valvular problems, normal EF. Thyroid function and thyroid US showed no abnormalities. Head CT was negative for any acute changes, EEG showed diffuse bilateral cerebral dysfunction. CT chest/abd/pelvis showed incidental finding of thickened endometrium. In the interim of the hospital course, pt received Ativan and Benadryl to undergo CT scans and other imaging tests. Pt drowsy the next day, head CT obtained did not show any acute changes. Pt's status likely from worsening dementia. PT eval was obtained and recommended TCU. Currently, pt is more awake, alert, hemodynamically stable. Denies any complaints. 12 point ROS unobtainable due to patient's dementia. PMH: hyperlipidemia, hypertension, ulcerative colitis, chronic UTI, and Alzheimer's disease, breast cancer, benign positional vertigo PSH: Cardiac cath (2012), right mastectomy, b/l cataract surgeries All: sulfa, codeine, ASA FH: denies SH: lives with daughter. Denies tobacco/ETOH/drug use Present on Admission - Present on Admission Any Indicators Present on Admission: No History of DVT/PE: No History of Uncontrolled Diabetes: No Urinary Catheter: No Decubitus Ulcer Present: No Past Patient History - Infectious Disease Hx of Infectious Diseases: None - Tetanus Immunizations Tetanus Immunization: Unknown - Past Social History Smoking Status: Never Smoked - CARDIAC Hx Cardiac Disorders: Yes Hx Hypercholesterolemia: Yes Hx Hypertension: Yes - PULMONARY Hx Respiratory Disorders: Yes Hx Asthma: Yes - NEUROLOGICAL Hx Neurological Disorder: Yes (head injury from fall) Hx Alzheimer's Disease: Yes Hx Dementia: Yes - HEENT Hx HEENT Problems: Yes Hx Cataracts: Yes (with sx) - RENAL Hx Chronic Kidney Disease: No - ENDOCRINE/METABOLIC Hx Endocrine Disorders: No - HEMATOLOGICAL/ONCOLOGICAL Hx Blood Disorders: Yes Hx Cancer: Yes (right breast) - INTEGUMENTARY Hx Dermatological Problems: Yes Other/Comment: scar to right breast.Sx- mastectomy - MUSCULOSKELETAL/RHEUMATOLOGICAL Hx Falls: Yes (10-10-17) - GASTROINTESTINAL Hx Gastrointestinal Disorders: Yes (ULCERATIVE COLITIS,ibs,CHOLEYCSTECTOMY) - GENITOURINARY/GYNECOLOGICAL Hx Genitourinary Disorders: Yes (INCONTINENT,UTI) Hx Reproductive Disorders: No - PSYCHIATRIC Hx Psychophysiologic Disorder: No Hx Emotional Abuse: No Hx Physical Abuse: No Hx Substance Use: No - SURGICAL HISTORY Hx Surgeries: Yes (BILATERAL CATARACT SX) Hx Cholecystectomy: Yes Hx Mastectomy: Yes (right) - ANESTHESIA Hx Anesthesia Reactions: No Hx Malignant Hyperthermia: No Meds Allergies/Adverse Reactions: Allergies Allergy/AdvReac Type Severity Reaction Status Date / Time codeine Allergy Intermediate RASH Verified 10/14/17 20:44 Sulfa (Sulfonamide Allergy Intermediate RASH Verified 10/14/17 20:44 Antibiotics) aspirin AdvReac Intermediate UPSET Verified 10/14/17 20:44 STOMACH Physical Exam - Additional Findings Additional findings: - Constitutional Appears: Non-toxic, No Acute Distress, Cachectic - Head Exam Head Exam: ATRAUMATIC, NORMOCEPHALIC - Eye Exam Eye Exam: EOMI, PERRL. absent: Conjunctival injection, Scleral icterus Pupil Exam: PERRL - ENT Exam ENT Exam: Mucous Membranes Moist - Neck Exam Neck Exam: Full ROM - Respiratory Exam Respiratory Exam: Clear to Ausculation Bilateral. absent: Accessory Muscle Use , Wheezes - Cardiovascular Exam Cardiovascular Exam: RRR, +S1, +S2. absent: Murmur - GI/Abdominal Exam GI & Abdominal Exam: Soft, Normal Bowel Sounds. absent: Distended, Firm, Mass, Organomegaly, Rebound - Extremities Exam Extremities Exam: absent: Calf Tenderness, Pedal Edema - Back Exam Back Exam: NORMAL INSPECTION - Neurological Exam Neurological Exam: More alert, awake - Psychiatric Exam Psychiatric exam: Normal mood. - Skin Skin Exam: Dry, Normal Color, Warm Results - Vital Signs Recent Vital Signs: Last Vital Signs Temp 97.5 F L 10/15/17 06:00 Pulse 81 10/15/17 10:17 Resp 16 10/15/17 06:00 BP 93/54 L 10/15/17 10:17 Pulse Ox 99 10/15/17 06:00 Assessment & Plan - Assessment and Plan (Free Text) Assessment: 82 year old female with PMH Alzheimer's, asthma, HTN, HLD, UC, chronic UTI, presents for fall/syncope, weight loss, anorexia. Head CT and [place] CT chest/abd/ pelvis negative except for endometrial wall thickening. Transvaginal US shows thickened endometrial lining at 16mm and a 2 cm simple cyst in right adnexa. Will consider Esthetician/Spa Coordinator eval. No arrhythmias noted on cardiac monitoring, echocardiogram neg for heart failure or valvular abnormalities. EEG shows diffuse bilateral cerebral dysfunction. PT recommends TCU, hence transferred for further care: Fall: mechanical, worsening mental status (2/2 dementia) - Pt afebrile, hemodynamically stable. - CT head neg - CT chest/abd/pelvis shows dilated endometrial canal or thickened endometrium in a postmenopausal woman. F/u pelvic/transvaginal US. - Echo showed ED 58%. Mild TR. RVSP 37 mmHg - TSH 1.34, T4 14.5, FT4 1.59, thyroid US shows atrophic heterogenous gland b/ l. No nodules. - Neuro consulted. Appreciate recs. C/w aricept. - Cardio consulted. Appreciate recs. Wants noninvasive workup. - Carotid US neg for significant stenosis - b/l 20-39% proximal ICA stenosis. - EEG shows diffuse bilateral cerebral dysfunction - Pt has worsening mentation. F/u Psych eval. SOB, resolved: 2/2 fluid overload, mild transient diastolic CHF - Pt on IVF since admission, discontinued 10/12. - BNP elevated 1340. CXR neg for any infiltrates. + pulm venous congestion. - Stopped IVF, started duonebs, given 1 time dose IV lasix 20 mg. Pt had relief of symptoms. - Cont to monitor. Elevated trops: - Trop 0.04->0.05->0.05->0.04 - Cardio consulted. Appreciate recs. noninvasive workup. Hx of Alzheimer's: - C/w home med Donepezil, risperidone PPX: lovenox, protonix Patient seen and discussed with Dr Siddiqui. Annette Tse, PGY1 - Date & Time Date: 10/15/17 Time: 14:30
--- NOTE | 2017-10-15 23:50 | CON ---
DATE: 10/15/2017 HISTORY OF PRESENT ILLNESS: The patient is 82 years old female, known history of Alzheimer's dementia. The patient lives with the family in [place]. The patient was admitted to the medical side for evaluation of change in mental status which was related most likely to the urinary tract infection. Psych consult was called for evaluation of the patient's delirium as well as the patient was on psychotropic medications before. The patient was seen and examined. Past history reviewed. The patient has history of dementia as well as delirium. The patient was on Risperdal in 2013 and was seen by Dr. Wong. The patient's daughter is next to the patient and the patient was feeling comfortable to talk in front of her daughter. The patient presented to be alert, knows that she is in the hospital, but does not know what is the date today. The patient denied being depressed. Denied thoughts of harming herself. Has basic understanding what is going on with her from the medical standpoint. As per daughter Yumiko, who is next to the patient, phone number [phone], prior to coming to the hospital, last Thursday, the patient had acute change in mental status, was confused and combative. That is why the patient came to the hospital. At the present moment, the patient is closer to her baseline and the patient's family was educated about medication what she is taking right now, Risperdal. Risks, benefits and alternatives were discussed with the patient's daughter, verbalized understanding. This flex o writer operator also advised and educated the patient about power of grid caster. This flex o writer operator had hoped that mental status will be improving and the patient will be able to appoint family or a friend as a power of grid caster in order for the future to have legal person who can make decision for the patient or help the patient with the decision. This flex o writer operator would like to emphasize the fact that the patient is having history of dementia and so will be not able to actively participate in treatment plans in the future. The patient and the patient's family were in agreement with that plan. Going back to vital signs, vital signs seems to be stable. Temperature 98.4, pulse is 100, blood pressure 95/54, respiration 20. MEDICATIONS: Reviewed. The patient was on piperacillin, dextrose, Aricept 10 mg at nighttime, Lovenox, Xopenex, methimazole, Protonix, K-Dur, Inderal. The patient has Risperdal 1 mg at the nighttime scheduled and thiamine 100 mg twice a day. LABS: Reviewed. MENTAL STATUS EXAM: The patient presented to be alert, knows that she is in the hospital. Intermittent eye contact. Speech is minimal, low volume. [place] thought process, mood described as fine. Affect was flat. Thought content, the patient denied visual, auditory, or tactile hallucinations. Denied paranoid ideations. Denied thoughts of harming herself or others. Denied intents or plan. Insight and judgment seems to be improving. Impulses are well controlled. IMPRESSION: Delirium on dementia. Delirium is improving. PLAN: Continue current management. Continue current medications. Discussed with the family about power of grid caster, will consider that in the future after the patient's mental status will be improving. Risperdal should be continued. Risks, benefits and alternatives discussed with the patient. We will follow up and advise accordingly. Discussed with Dr. Siddiqui in detail. Thank you very much for letting me participate in care of your patient. Should you have any questions give me a call back. Mary Barrientos MD
--- NOTE | 2017-10-16 00:54 | HP ---
HISTORY OF PRESENT ILLNESS: The patient is now admitted to Transitional Care Unit 319, bed 1. The patient is seen now in room 319, bed 1. The patient is seen lying in the bed. The patient is awake, responsive, and confused.. Overnight nurse's notes were reviewed. REVIEW OF SYSTEMS: A 13 system review was done. PHYSICAL EXAMINATION: GENERAL: The patient was found to be confused, disoriented, but alert, awake, and responsive. VITAL SIGNS: T-max 98.4, heart rate 84, 81, and 92, blood pressure 111/52, 95/54, and 100/55, respirations 16, and O2 sat is 99%. HEENT: The patient's head examination normocephalic and atraumatic. HEENT examination shows pinkish pale conjunctivae. Anicteric sclerae. Dry oral mucosa. No neck rigidity. Positive facial muscle wasting. NECK: Shows no visible jugular venous distention. Questionable soft carotid bruit. CHEST: Kyphosis. Positive right mastectomy noted. LUNGS: Shows no rales, crackles, or wheezing. CARDIOVASCULAR: S1 and S2, regular rhythm. Questionable soft systolic murmur left sternal border, right second intercostal space. ABDOMEN: Soft. Positive surgical scar of cholecystectomy. No costovertebral angle tenderness. No hepatosplenomegaly. No guarding. No rigidity. No rebound tenderness. GENITALIA: Female. RECTAL: Deferred. EXTREMITIES: Shows no pitting edema. No calf tenderness. No Homans' sign. NEUROLOGIC: The patient is alert, awake, oriented to person, disoriented to year, date, month, time, and place. DIAGNOSTIC DATA: None from today. IMPRESSION AND PLAN: 1. Gait dysfunction. 2. Deconditioning. 3. Toxic metabolic encephalopathy with increasing confusion and disorientation. 4. Psychosis. 5. Recurrent fall versus mechanical fall versus questionable syncope. 6. Tachycardia. 7. Acute exacerbation of dementia. 8. Hypotension. 9. Anorexia. 10. Weight loss. 11. History of ulcerative colitis. 12. History of right breast carcinoma and right mastectomy. 13. Acute exacerbation of dementia. 14. Anteverted uterus with fluid-filled endometrial cavity. 15. Right adnexal cyst. 16. Nonvisualized left ovary. 17. Fluid-filled distended endometrial cavity without evidence of discrete mass. 18. Dementia. 19. Severe symptomatic hypokalemia. 20. Subclinical hyperthyroidism. Plan at this time, the patient has been ordered morning a.m. labs. CONSULTATIONS: 1. Cardiology. 2. Psychiatry. CURRENT MEDICATIONS: 1. Aricept 10 mg at bedtime. 2. D5 half normal saline at 60 mL an hour. 3. Inderal 10 mg twice a day. 4. K-Dur 20 mEq three times a day. 5. Lovenox 40 mg subcutaneously daily. 6. Periactin 4 mg twice a day. 7. Protonix 20 mg twice a day. 8. Risperdal 1 mg at bedtime p.r.n. changed by Psychiatry. 9. Tapazole 5 mg daily. 10. Thiamine 100 mg twice a day. 11. Xopenex nebulizer 0.63 mg q.6 hours. 12. Regular diet. The patient has been ordered SCDs, TYRESE stockings, out of bed to chair, physical therapy, occupational therapy, and ambulation therapy ordered. The patient's overall prognosis is guarded to poor, which has been explained to the patient's daughter by me and Dr. Avitia. The patient is being referred to physical therapy, occupational therapy, gait training, and ambulation. Dictated and electronically signed, not read. Sergei Siddiqui MD
[2017-10-16] MEDS: Levalbuterol 0.63 MG/3 ML Inhal Soln UD IH SCH ×4 (01:48→21:52)
[2017-10-16] MEDS: Pantoprazole 20 mg EC Tab PO SCH ×2 (05:57→16:39)
[2017-10-16] MEDS: Enoxaparin 40 mg Syringe SC SCH (05:59)
[2017-10-16 07:17] LABS: BASO # 0.04 K/mm3 (0.0-2.0); BASO % 0.7 % (0.0-3.0); EOS # 0.2 (0.0-0.7); EOS % 3.8 % (1.5-5.0); GRAN # 3.08 (1.4-6.5); GRAN % 56.5 % (50.0-68.0); HEMOGLOBIN 10.4 g/dL (12.0-16.0); LYMPH # 1.7 (1.2-3.4); LYMPH % 31.3 % (22.0-35.0); MEAN CELL VOLUME 90.8 fl (80.0-105.0); MEAN CORPUSCULAR HEMOGLOBIN 29.1 pg (25.0-35.0); MEAN PLATELET VOLUME 9.8 fl (7.0-11.0); MONO # 0.4 (0.1-0.6); MONO % 7.7 % (1.0-6.0); RBC 3.58 10^6/uL (3.5-6.1); RED CELL DISTRIBUTION WIDTH 13.2 % (11.5-14.5); WHITE BLOOD COUNT 5.5 10^3/ul (4.5-11.0)
[2017-10-16 07:32] LABS: ALB/GLOB RATIO 1.1 (1.1-1.8); ALT/SGPT 22 U/L (7-56); AST/SGOT 20 U/L (14-36); BILIRUBIN,DIRECT 0.3 mg/dL (0.0-0.4); BLOOD UREA NITROGEN 8 mg/dL (7-21); CALCIUM 9.4 mg/dL (8.4-10.5); GFR AFRICAN-AMERICAN > 60; GFR NON-AFRICAN AMERICAN > 60; MAGNESIUM 1.8 mg/dL (1.7-2.2)
[2017-10-16] MEDS: methIMAzole 5 MG TAB PO SCH (09:17)
[2017-10-16] MEDS: Potassium Chloride 20 mEq ER Tab PO SCH ×3 (09:18→18:38)
--- NOTE | 2017-10-16 12:52 | PN ---
DATE: 10/16/2017 LOCATION: The patient is seen lying in room 319, bed one. SUBJECTIVE: The patient is arousable, awake, responsive, alert to person, disoriented to place, year, date, month. PHYSICAL EXAMINATION: VITAL SIGNS: T-max 98.8, pulse 89, blood pressure , respirations 16, O2 sat 99%. GENERAL: The patient is seen lying in the bed. HEENT: Head: Normocephalic, atraumatic. HEENT examination shows pale conjunctivae. Dry oral mucosa. Positive facial muscle wasting. NECK: No neck rigidity. No audible carotid bruit. Soft carotid bruits. No jugular venous distention. CHEST: Kyphosis. Positive right mastectomy scar noted. LUNGS: Shows no rales, crackles or wheezing. Positive kyphosis. CARDIOVASCULAR: Shows S1, S2, regular rhythm. Questionable soft systolic murmur left sternal border, right second intercostal space. ABDOMEN: Soft. Healed surgical scar of cholecystectomy. GENITALIA: Female. RECTAL: Deferred. EXTREMITIES: Shows no pitting edema, no calf numbness, no Homans' sign. NEUROLOGIC: The patient is alert, awake, oriented x1. Disoriented, confusion noted. MUSCULOSKELETAL: Shows a decreased muscle mass and muscle wasting. DIAGNOSTICS: 10/16/2017, hemoglobin/hematocrit 10.4, 32.5. Sodium 140, potassium 3.8, chloride 105, CO2 27, anion gap 11, BUN 8, creatinine 0.4, GFR greater than 60, glucose 96, calcium 9.4, magnesium 1.8. LFTs are normal. PLAN: At this time, the patient has been ordered Aricept 10 mg at bedtime, D5 half normal saline at 60 mL an hour, Inderal 10 mg twice a day, K-Dur 20 mEq twice a day, Lovenox 40 mg subcu daily, Periactin 4 mg twice a day, Protonix 20 mg twice a day, Risperdal changed to 1 mg p.o. at bedtime p.r.n., Tapazole 5 mg daily, thiamine 100 mg p.o. twice a day, Xopenex nebulizer 0.63 mg every 6 hours. The patient has been ordered out of bed, physical therapy, occupational therapy, ambulation therapy, gait training ordered. Overall, the patient's prognosis is guarded to poor. Explained to the patient's daughter, Tasha, at length by me and Dr. Avitia at length. Dr. Avitia even has discussed palliative care for the patient with the daughter, no decision yet. Dictated and electronically signed, not read. Sergei Siddiqui MD
[2017-10-16] MEDS: Dextrose 5%/0.45% NS 1,000 ML IV SCH (21:34)
--- NOTE | 2017-10-16 23:01 | PN ---
DATE: FOLLOWUP NOTE SUBJECTIVE: The patient was followed up today. This play writer was involved in the patient's care because the patient has history of Alzheimer's dementia, was on psychotropic medications in the past. Please see initial note for more detailed information. Yesterday, this play writer had prolonged conversation with the patient's daughter, who was next to the patient and this play writer advised to have advanced directive to be discussed in the family and the patient should point anyone from the family or friend to be her POA. Of course, if the patient mental status will be improving. This play writer recommended to continue Risperdal and discussed case with Dr. Siddiqui. Today, the patient was followed up. The patient presented to be sleepy, easily arousable. The patient per presented to be comfortable, expressed no concerns or complaints. Overall, the patient was calm and cooperative. As per nursing staff, the patient does not have any behavioral disturbances, participates in physical therapy and treatment plan. This play writer reviewed vital signs, seems to be stable, but pulse is 93 today, temperature 98.1, blood pressure 96/48, blood pressure 116/62 and respiration 18. MEDICATIONS: Reviewed. Aricept, also Lovenox, Xopenex, Tapazole, Protonix, K-Dur, Inderal, Risperdal 1 mg oral solution is needed for agitation and confusion. The patient was not agitated, though confused that is why it was not given and vitamin B1. LABORATORY DATA: Labs reviewed. Hemoglobin and hematocrit was 10.4 and 32.2 respectively, it was yesterday and there are no new labs. MENTAL STATUS EXAMINATION: As this play writer described above, the patient seems to be sleepy, easily arousable, intermittent eye contact, speech was under productive. Mood described as fine. Affect was constricted. Thought process seems to be circumstantial. Thought content, the patient denied visual, auditory, or tactile hallucinations. Denied paranoid ideation. The patient does not present to be psychotic. Insight and judgment seems to be limited but improving. Impulses are better controlled. IMPRESSION: Dementia. Delirium is improving. The patient has multiple medical issues. Please see medical team notes for more detailed information. PLAN: Continue current management. Continue current medications, Risperdal as needed at the nighttime, but the patient is improving. If the patient will be able to participate in regards of power of assistant district attorney, legal papers, this play writer was advised to call hospital services and advance directives needs to be discussed with the patient and the patient's family. Other than that, we will continue current management. Continue current medications. Over the weekend, Dr. Cervantes is ux information architect, but if there is no acute issues, this play writer will follow up on this patient on Thursday. Should you have any questions give me a call back. Thank you very much for letting me participate in care of your patient. Mary Barrientos MD
[2017-10-17] MEDS: Levalbuterol 0.63 MG/3 ML Inhal Soln UD IH SCH ×4 (03:00→20:20)
[2017-10-17] MEDS: Enoxaparin 40 mg Syringe SC SCH (05:54)
[2017-10-17] MEDS: Dextrose 5%/0.45% NS 1,000 ML IV SCH ×2 (05:54→14:24)
[2017-10-17] MEDS: Pantoprazole 20 mg EC Tab PO SCH ×2 (05:54→17:00)
[2017-10-17] MEDS: Potassium Chloride 20 mEq ER Tab PO SCH ×3 (09:23→17:10)
[2017-10-17] MEDS: methIMAzole 5 MG TAB PO SCH (09:24)
--- NOTE | 2017-10-17 12:33 | PN ---
DATE: 10/17/2017 SUBJECTIVE: The patient is seen in room 319, the patient is lying in the bed. The patient is completely awake today. The patient started to eat breakfast at present. The patient is lying in the bed. Overnight, nurse's notes were reviewed. The patient was found to be alert, awake, oriented x1. The patient has been confused, but not in any distress. PHYSICAL EXAMINATION: VITAL SIGNS: T-max 98.5. Pulse 77, 70, 60, blood pressure 117/69, 116/62. Yesterday's blood pressure, 96/48, 99/64, respiration 20, O2 sat 96%. HEENT: Head: Normocephalic, atraumatic. HEENT examination shows dry oral mucosa. Positive facial muscle wasting. Pinkish pale conjunctivae, Dry oral mucosa. NECK: No jugular venous distention. Soft carotid bruit. CHEST: Shows right mastectomy, surgical scar. Positive kyphosis. LUNGS: Shows no rales, crackles or wheezing. CARDIOVASCULAR: S1, S2, regular rhythm. Questionable soft systolic murmur, left sternal border, right second intercostal space, left second intercostal space. ABDOMEN: Soft. Positive bowel sound. Healed surgical scar of cholecystectomy. No guarding. No rigidity. No rebound tenderness. No costovertebral angle tenderness. No hepatosplenomegaly appreciated. GENITALIA: Female. RECTAL: Deferred. EXTREMITIES: Shows no pitting, no calf tenderness. No Homans' sign. No clubbing, no cyanosis. VASCULAR: Palpable pulses. MUSCULOSKELETAL: Shows a body mass index of 21. Gait examination could not be tested as the patient is lying in the bed. NEUROLOGIC: Cranial nerves II-XII limited. The patient is alert, awake, oriented x1. Disoriented to year, date, month place. The patient did follow simple command. DIAGNOSTICS: None from today. IMPRESSION AND PLAN: 1. Severe deconditioning. 2. Gait dysfunction. 3. Cachexia. 4. Anorexia. 5. Alzheimer type dementia. 6. History of psychosis and auditory vision hallucination. 7. Confusion. 8. Dementia with delirium. 9. Hypotension. 10. Tachycardia. 11. Normocytic anemia. 12. Weight loss. 13. Tachycardia. 14. Severe symptomatic hypokalemia. 15. Possible subclinical hyperthyroidism. I have spoken to the patient's daughter again last evening. Updating the patient's condition, diagnosis, overall guarded to poor prognosis, I have also explained to the patient's daughter about recommendation few days ago by Dr. Avitia. Dr. Avitia had spoken to the patient's daughter and I have spoken also to patient's daughter about palliative care and suggesting DNR, which the patient's daughter was again reinforced regarding the patient's declining overall health and decompensated state, but the patient's daughter has not made any decision. At present, the patient's daughter requested a repeat urine culture which has been ordered. The patient has also been refusing IV fluids resumption, but it was resumed. CURRENT MEDICATIONS: Aricept 10 mg at bedtime, IV fluid D5 half normal saline at 80 mL an hour, Inderal 10 mg twice a day, K-Dur 20 mEq three times a day, Lovenox 40 mg subcu daily, Periactin 4 mg twice a day, Protonix 20 mg twice a day, Risperdal 1 mg at bedtime p.r.n., Tapazole 5 mg daily, vitamin B1 (thiamine) 100 mg twice a day, Xopenex 0.63 mg nebulizer q. 6 hours, regular diet. The patient has been ordered out of bed, SCDs, TYRESE stockings, occupational therapy, physical therapy ordered. The patient seen by the physical therapist. The patient seen by the occupational therapist. Prognosis is guarded to poor. Dictated and electronically signed, not read. Sergei Siddiqui MD
[2017-10-17 14:21] LABS: URINE APPEARANCE CLOUDY (CLEAR); URINE BILIRUBIN NEGATIVE (NEGATIVE); URINE BLOOD LARGE (NEGATIVE); URINE COLOR YELLOW (YELLOW); URINE GLUCOSE (UA) NEGATIVE (NEGATIVE); URINE LEUKOCYTE ESTERASE LARGE Leu/uL (NEGATIVE); URINE NITRATE POSITIVE (NEGATIVE); URINE PROTEIN TRACE mg/dL (<30 mg/dL); URINE UROBILINOGEN 0.2 E.U./dL (<1 E.U./dL)
[2017-10-17] MEDS ORDERED: Lactobacillus Acidophilus 500 MU Cap PO ONE (14:34)
[2017-10-17 14:49] LABS: URINE BACTERIA MANY (NEG); URINE EPITHELIAL CELLS 0 - 2 /hpf (0-5); URINE RBC TNTC /hpf (0-2); URINE WBC TNTC /hpf (0-6)
[2017-10-17] MEDS ORDERED: Cefepime 1gm in NS 100ml 1 GM/100 ML BAG IVPB SCH ×2 (19:44→19:49)
[2017-10-18] MEDS: Levalbuterol 0.63 MG/3 ML Inhal Soln UD IH SCH ×4 (01:30→19:25)
[2017-10-18] MEDS: Cefepime 1gm in NS 100ml 1 GM/100 ML BAG IVPB SCH ×2 (05:54→17:08)
[2017-10-18] MEDS: Enoxaparin 40 mg Syringe SC SCH (05:54)
[2017-10-18] MEDS: Pantoprazole 20 mg EC Tab PO SCH ×2 (05:54→16:55)
[2017-10-18] MEDS: Dextrose 5%/0.45% NS 1,000 ML IV SCH ×4 (05:55→21:20)
[2017-10-18] MEDS: methIMAzole 5 MG TAB PO SCH (10:26)
[2017-10-18] MEDS: Potassium Chloride 20 mEq ER Tab PO SCH ×3 (10:26→17:07)
[2017-10-18 18:21] LABS: BASO # 0.04 K/mm3 (0.0-2.0); BASO % 0.5 % (0.0-3.0); EOS # 0.4 (0.0-0.7); EOS % 4.3 % (1.5-5.0); GRAN # 4.68 (1.4-6.5); GRAN % 54.9 % (50.0-68.0); HEMOGLOBIN 11.1 g/dL (12.0-16.0); LYMPH # 2.7 (1.2-3.4); LYMPH % 32.1 % (22.0-35.0); MEAN CELL VOLUME 92.8 fl (80.0-105.0); MEAN CORPUSCULAR HEMOGLOBIN 29.5 pg (25.0-35.0); MEAN CORPUSCULAR HGB CONC 31.8 g/dl (31.0-37.0); MEAN PLATELET VOLUME 13.4 fl (7.0-11.0); MONO # 0.7 (0.1-0.6); MONO % 8.2 % (1.0-6.0); RBC 3.76 10^6/uL (3.5-6.1); RED CELL DISTRIBUTION WIDTH 13.4 % (11.5-14.5); WHITE BLOOD COUNT 8.5 10^3/ul (4.5-11.0)
[2017-10-18 19:09] LABS: ALB/GLOB RATIO 1.1 (1.1-1.8); ALBUMIN 3.3 g/dL (3.0-4.8); ALT/SGPT 21 U/L (7-56); AST/SGOT 25 U/L (14-36); BILIRUBIN,DIRECT 0.3 mg/dL (0.0-0.4); BLOOD UREA NITROGEN 8 mg/dL (7-21); CALCIUM 9.8 mg/dL (8.4-10.5); GFR AFRICAN-AMERICAN > 60; GFR NON-AFRICAN AMERICAN > 60
--- NOTE | 2017-10-18 20:33 | PN ---
DATE: 10/18/2017 SUBJECTIVE: The patient is seen in room 319, bed 1. The patient's daughter is at bedside. The patient today is out of bed to chair. The patient is completely awake, alert, responsive, confused, disoriented, oriented to person, disoriented to year, date, month, and time. The patient is unable to state her date of . The patient is seen sitting up in the recliner. The patient's overnight nurse's notes were reviewed. The patient had loose bowel movement. The patient's stool was sent for C. diff. Loose bowel movement have stopped. OBJECTIVE: VITAL SIGNS: T-max is 98.5. Heart rate averaging 80s, 70s, and 60s. Blood pressure averaging around low 110 systolic and diastolic in 60s and high 60s, respiration 16, O2 sat is averaging 99%. GENERAL: The patient is seen sitting up in the recliner. HEENT: Head; normocephalic and atraumatic. Shows pinkish pale conjunctivae. Positive facial muscle wasting. Positive dry oral mucosa. Soft carotid bruit. CHEST: Kyphosis. Positive right mastectomy noted. No rales, crackles or wheezing. CARDIOVASCULAR: Shows S1, S2, regular rate rhythm. At present there is no audible murmur, gallop or rub. ABDOMEN: Soft. Positive healed surgical scar of cholecystectomy. No guarding. No rigidity, no rebound tenderness. No costovertebral angle tenderness. No hepatosplenomegaly palpable. GENITALIA: Female. RECTAL: Deferred. EXTREMITIES: Shows no pitting edema, no calf numbness, no Elsie's sign. MUSCULOSKELETAL: Shows a body mass index of 21. NEUROLOGIC: The patient is alert, awake, oriented x1. Cranial nerves II-XII limited. The patient is confused and disoriented. The patient's urinalysis shows trace protein, large blood, positive nitrate, large leukocyte esterase, bacteria many. Microbiology urine culture shows Gram-negative gadiel 100,000. IMPRESSION: 1. Gait dysfunction. 2. Anorexia. 3. Weight loss. 4. Diarrhea two times. 5. Delirium. 6. History of dementia. 7. Hypotension. 8. Tachycardia. 9. Normocytic anemia. 10. Severe symptomatic hypokalemia. 11. Gram-negative gadiel urinary tract infection with proteinuria, microscopic hematuria, pyuria, bacteriuria. 12. Severe deconditioning. 13. Distended fluid-filled endometrial cavity without any discrete mass. 14. Right adnexal 2-cm simple cyst. 15. Non-visualized left ovary. PLAN: At this time, the patient's repeat urine cultures are ordered. Stool C. diff is pending. Current consultation Cardiology and Psychiatry. CURRENT MEDICATIONS: Aricept 10 mg at bedtime, Bacid 1 capsule was given with resolution of loose bowel movement, the patient is on D5 half normal saline at 80 mL an hour, Inderal 10 mg twice a day, K-Dur 20 mEq three times a day, Lovenox 40 mg subcu daily, cefepime 1 g IV q. 12 h., Periactin 4 mg twice a day, Protonix 20 mg twice a day, Risperdal 1 mg at bedtime p.r.n., Tapazole 5 mg daily, thiamine 100 mg twice a day, Xopenex nebulizer 0.63 mg every 6 hours, the patient is on regular diet. The patient is also ordered dietary supplementation as per dietitian recommendation. At present, I have updated the patient's condition to the patient's daughter who was present at bedside. I have advised and re-discussed the recommendation by Gastroenterology, Dr. Avitia regarding palliative care, DNR, etc., which the patient's family and the daughter has not decided yet. Dictated and electronically signed, not read. Sergei Siddiqui MD
[2017-10-19] MEDS: Levalbuterol 0.63 MG/3 ML Inhal Soln UD IH SCH ×4 (02:13→21:15)
[2017-10-19] MEDS: Cefepime 1gm in NS 100ml 1 GM/100 ML BAG IVPB SCH ×2 (05:34→17:49)
[2017-10-19] MEDS: Pantoprazole 20 mg EC Tab PO SCH ×2 (05:41→17:50)
[2017-10-19] MEDS: Enoxaparin 40 mg Syringe SC SCH (05:41)
[2017-10-19] MEDS: Dextrose 5%/0.45% NS 1,000 ML IV SCH ×2 (10:10→22:38)
[2017-10-19] MEDS: Potassium Chloride 20 mEq ER Tab PO SCH ×3 (10:11→17:48)
[2017-10-19] MEDS: methIMAzole 5 MG TAB PO SCH (10:12)
--- NOTE | 2017-10-19 17:07 | PN ---
DATE: 10/19/2017 SUBJECTIVE: The patient is seen in room 319, bed 1. The patient is out of bed to chair today. The patient is sitting up in the chair. The patient is alert, awake, responsive. The patient does not appear to be in any distress at present. Overnight nurse's notes were reviewed.. The patient was found to be alert, awake, oriented x1. PHYSICAL EXAMINATION: VITAL SIGNS: T-max 97.9, pulse 76, 83, 77, 94, blood pressure 112/59, respirations 16, O2 sat 98%. HEAD: Normocephalic, atraumatic. HEENT: Shows pinkish pale conjunctivae. Anicteric sclerae. No oropharyngeal lesion. Positive facial muscle wasting. NECK: Soft carotid bruit. No jugular venous distention. CHEST: Kyphosis. Positive right mastectomy noted. LUNGS: Examination shows no rales, crackles, or wheezing. CARDIOVASCULAR: S1, S2, regular rhythm. Positive systolic murmur, left sternal border, right second intercostal space. ABDOMEN: Soft. Positive bowel sound. No hepatosplenomegaly noted. No guarding. No rigidity. No rebound tenderness. GENITALIA: Female. RECTAL: Deferred. EXTREMITIES: Show no pitting edema, no calf tenderness, no Homans sign. MUSCULOSKELETAL: Shows a body mass index of 21. NEUROLOGIC: The patient is alert, awake, oriented x1. Gait examination not tested. VASCULAR: Palpable pedal pulses. DIAGNOSTICS: 10/18/2017: The patient had a repeat CBC and CMP. WBC shows 8.5, hemoglobin/hematocrit 11.1/35, platelets 248. Sodium 142, potassium 4.4, chloride 107, CO2 32, anion gap 8, BUN 8, creatinine 0.6, GFR greater than 60, glucose 89, calcium 9.2, magnesium 2.0. LFTs are normal. Urine cultures Escherichia coli, greater than 100,000, pansensitive. Sensitive to cefepime. Repeat urine cultures pending, which are still unconnected. IMPRESSION AND PLAN: 1. Deconditioning. 2. Gait dysfunction. 3. Anorexia. 4. Failure to thrive. 5. Dementia. 6. Hypotension. 7. Escherichia coli urinary tract infection with proteinuria, hematuria, pyuria, bacteriuria. 8. Normocytic anemia. 9. Tachycardia. 10. Symptomatic hypokalemia. 11. Delirium and dementia. 12. Subclinical hyperthyroidism. PLAN: At this time, the patient's potassium has stabilized to 4.4. The patient's blood pressure is now 112/59. The patient will be continued on current medications Aricept 10 mg at bedtime, D5 half normal saline at 80 mL an hour, Inderal 10 mg twice a day, K-Dur 20 mEq three times a day, Lovenox 40 mg subcu daily, Maxipime 1 gm IV q.12, Periactin 4 mg twice a day, Protonix 20 mg twice a day or 40 mg daily, Risperdal 1 mg at bedtime p.r.n., Tapazole 5 mg daily, thiamine 100 mg twice a day, Xopenex nebulizer 0.63 mg q.6 h. [id number]. The patient is ordered physical therapy, occupational therapy, ambulation therapy, gait therapy, and out of bed to chair. Overall prognosis guarded to poor Dictated and electronically signed, not read. Sergei Siddiqui MD
[2017-10-20] MEDS: Levalbuterol 0.63 MG/3 ML Inhal Soln UD IH SCH ×4 (02:00→21:30)
[2017-10-20] MEDS: Cefepime 1gm in NS 100ml 1 GM/100 ML BAG IVPB SCH ×2 (05:00→17:21)
[2017-10-20] MEDS: Pantoprazole 20 mg EC Tab PO SCH ×2 (05:00→17:22)
[2017-10-20] MEDS: Enoxaparin 40 mg Syringe SC SCH (05:00)
[2017-10-20 08:28] LABS: BASO # 0.06 K/mm3 (0.0-2.0); BASO % 0.8 % (0.0-3.0); EOS # 0.3 (0.0-0.7); EOS % 3.7 % (1.5-5.0); GRAN # 3.71 (1.4-6.5); GRAN % 49.6 % (50.0-68.0); LYMPH # 2.9 (1.2-3.4); LYMPH % 38.1 % (22.0-35.0); MEAN CORPUSCULAR HEMOGLOBIN 29.3 pg (25.0-35.0); MEAN CORPUSCULAR HGB CONC 32.2 g/dl (31.0-37.0); MEAN PLATELET VOLUME 9.6 fl (7.0-11.0); MONO # 0.6 (0.1-0.6); MONO % 7.8 % (1.0-6.0); RBC 4.1 10^6/uL (3.5-6.1); RED CELL DISTRIBUTION WIDTH 13.3 % (11.5-14.5); WHITE BLOOD COUNT 7.5 10^3/ul (4.5-11.0)
[2017-10-20 08:47] LABS: ALB/GLOB RATIO 1.2 (1.1-1.8); ALBUMIN 3.6 g/dL (3.0-4.8); ALT/SGPT 19 U/L (7-56); AST/SGOT 22 U/L (14-36); BLOOD UREA NITROGEN 5 mg/dL (7-21); CALCIUM 9.7 mg/dL (8.4-10.5); GFR AFRICAN-AMERICAN > 60; GFR NON-AFRICAN AMERICAN > 60; MAGNESIUM 2.1 mg/dL (1.7-2.2)
[2017-10-20] MEDS: Dextrose 5%/0.45% NS 1,000 ML IV SCH ×2 (09:16→12:22)
[2017-10-20] MEDS: Potassium Chloride 20 mEq ER Tab PO SCH ×3 (09:21→17:21)
[2017-10-20] MEDS: methIMAzole 5 MG TAB PO SCH (09:21)
--- NOTE | 2017-10-20 11:42 | CP.PCM.PN ---
Subjective - Date & Time of Evaluation Date of Evaluation: 10/20/17 Time of Evaluation: 11:35 - Subjective Subjective: IM Progress Note for Dr. Siddiqui service Patient seen and examined at bedside in the TCU. No acute events reported overnight. Patient pleasant but only oriented to self, daughter, and PMD. Not oriented to place, pleasantly disoriented. Denies pain, chest pain, shortness of breath. Daughter is at bedside, concerned regarding patient's care, believed patient did not receive antibiotics day prior (as per MAR, she did), and claims she was told that patient was at maximum benefit from PT. Initially wanted to take the patient home today, but after discussion with the medical team, agreed to allow patient to finish out all approved days at TCU (last day is ). Objective - Vital Signs/Intake and Output Vital Signs (last 24 hours): Temp Pulse Resp BP Pulse Ox 98 F 85 18 97/56 L 98 10/19/17 17:49 10/20/17 09:17 10/19/17 17:49 10/20/17 09:17 10/18/17 16:00 - Medications Medications: Current Medications Cyproheptadine HCl (Periactin) 4 mg PO BID [facility] Last Admin: 10/20/17 09:21 Dose: 4 mg Donepezil HCl (Aricept) 10 mg PO HS [facility] Last Admin: 10/19/17 21:34 Dose: 10 mg Enoxaparin Sodium (Lovenox) 40 mg SC 0600 [facility] PRN Reason: Protocol Last Admin: 10/20/17 05:00 Dose: 40 mg Dextrose/Sodium Chloride (Dextrose 5%/0.45% Ns 1000 Ml) 1,000 mls @ 80 mls/hr IV .[id number] [facility] Last Admin: 10/20/17 09:16 Dose: 80 mls/hr Cefepime HCl (Maxipime 1gm) 1 gm in 100 mls @ 100 mls/hr IVPB 0600,1800 [facility] PRN Reason: Protocol Last Admin: 10/20/17 05:00 Dose: 100 mls/hr Levalbuterol HCl (Xopenex) 0.63 mg IH [id number] [facility] Last Admin: 10/20/17 07:21 Dose: 0.63 mg Methimazole (Tapazole) 5 mg PO DAILY [facility] Last Admin: 10/20/17 09:21 Dose: 5 mg Pantoprazole Sodium (Protonix Ec Tab) 20 mg PO 0600,1600 [facility] Last Admin: 10/20/17 05:00 Dose: 20 mg Potassium Chloride (K-Dur 20 Meq Er Tab) 20 meq PO TID [facility] Last Admin: 10/20/17 09:21 Dose: 20 meq Propranolol HCl (Inderal) 10 mg PO BID [facility] Last Admin: 10/20/17 09:17 Dose: 10 mg Risperidone (Risperdal Oral Soln) 1 mg PO HS PRN; Protocol PRN Reason: agitation/confusion/psychosis Thiamine HCl (Vitamin B1 Tab) 100 mg PO BID [facility] Last Admin: 10/20/17 09:21 Dose: 100 mg - Labs Labs: 10/20/17 08:00 10/20/17 08:00 - Constitutional Appears: Non-toxic, No Acute Distress, Chronically Ill - Head Exam Head Exam: ATRAUMATIC, NORMAL INSPECTION, NORMOCEPHALIC - Eye Exam Eye Exam: EOMI, Normal appearance. absent: Conjunctival injection, Scleral icterus Pupil Exam: absent: Irregular, Unequal - ENT Exam ENT Exam: Mucous Membranes Moist - Neck Exam Neck Exam: Full ROM - Respiratory Exam Respiratory Exam: Clear to Ausculation Bilateral, NORMAL BREATHING PATTERN. absent: Accessory Muscle Use, Chest Wall Tenderness, Decreased Breath Sounds, Rhonchi, Wheezes, Respiratory Distress - Cardiovascular Exam Cardiovascular Exam: REGULAR RHYTHM, RRR, +S1, +S2. absent: Bradycardia, Tachycardia, Irregular Rhythm, JVD, +S4 - GI/Abdominal Exam GI & Abdominal Exam: Soft, Normal Bowel Sounds. absent: Distended, Firm, Guarding, Rigid, Tenderness, Diminished Bowel Sounds, Hypoactive Bowel Sounds - Extremities Exam Extremities Exam: Normal Inspection. absent: Calf Tenderness, Pedal Edema, Tenderness - Neurological Exam Additional comments: awake and alert, oriented to self/daughter/PMD only, otherwise pleasantly disoriented able to move all extremities on command, able to transition from sitting to standing with 2 person assist - Psychiatric Exam Psychiatric exam: Normal Affect, Normal Mood - Skin Skin Exam: Dry, Intact, Normal Color, Warm Assessment and Plan - Assessment and Plan (Free Text) Assessment: 82 year old female with PMH Alzheimer's, asthma, HTN, HLD, UC, chronic UTI, presents for fall/syncope, weight loss, anorexia. She is continuing to receive reconditioning and strengthening in the TCU. Plan: 1) Fall -mechanical vs worsening mental status (2/2 dementia), may be multifactorial -Pt afebrile, hemodynamically stable. -CT head neg -CT chest/abd/pelvis shows dilated endometrial canal or thickened endometrium in a postmenopausal woman. F/u pelvic/transvaginal US. -Echo showed ED 58%. Mild TR. RVSP 37 mmHg -TSH 1.34, T4 14.5, FT4 1.59, thyroid US shows atrophic heterogenous gland b/l. No nodules. -Neuro consulted. Appreciate recs. C/w aricept. -Cardio consulted. Appreciate recs. Wants noninvasive workup. -Carotid US neg for significant stenosis - b/l 20-39% proximal ICA stenosis. -EEG shows diffuse bilateral cerebral dysfunction -Pt has worsening mentation. F/u Psych eval. 2) UTI -UA on 10.17 notable for large leuk esterase, positive nitrates, TNTC WBCs and RBCs, and many bacteria -hx of chronic UTI infections, hx of bladder diverticula likely predisposing to UTIs -continue cefepime -pending urine cx results to determine appropriate PO medication to transition to for discharge 3) SOB - resolved -2/2 fluid overload, mild transient diastolic CHF -BNP elevated 1340. CXR neg for any infiltrates. + pulm venous congestion. -Stopped IVF, started duonebs, given 1 time dose IV lasix 20 mg. Pt had relief of symptoms. -Cont to monitor. 4) Elevated trops: -Trop 0.04->0.05->0.05->0.04 -Cardio consulted, no acute intervention required. 5) Hx of Alzheimer's: -continue home Donepezil, risperidone Dispo: TCU, continuing IV abx for UTI pending speciation/sensitivities, continuing PT for strengthening, pending d/c on 10/22/17 FEN: Regular diet Access: Peripheral IV Consults: Cardio, Psych Ppx: Protonix for GI, Lovenox for DVT Patient seen, reviewed, and discussed with attending, Dr. Siddiqui.
--- NOTE | 2017-10-20 13:50 | PN ---
DATE: 10/20/2017 SUBJECTIVE: The patient is seen in room number 319, bed one. The patient is out of bed to chair. The patient's daughter is at bedside. The patient's daughter is stating that somebody told her that her mother cannot continue in the TCU and she has to go home. The patient's daughter and the patient was met with the social media content specialist and TCU approved days which was explained to the patient's daughter in layman's language and all questions and concerned answered. The patient was seen sitting up in the chair recliner. The patient is able to stand up with assistance. Overnight nurse's notes were reviewed. The patient stayed in bed awake and responsive. PHYSICAL EXAMINATION: VITAL SIGNS: T-max of 98, heart rate of 85, blood pressure of 97/56, respirations of 18, and O2 saturation is 96% to 98%. HEENT: Head examination shows normocephalic and atraumatic. HEENT examination shows pink conjunctivae. Anicteric sclerae. No oropharyngeal lesion. No jugular venous distention and no carotid bruit. Positive facial muscle wasting. CHEST: Examination shows kyphosis. LUNGS: Examination shows no rales, crackles or wheezing. CARDIOVASCULAR: Examination shows S1 and, S2, regular rhythm. Questionable soft systolic murmur left sternal border, right second intercostal space. GASTROINTESTINAL: Abdomen is soft. Positive bowel sound. No hepatosplenomegaly noted. No guarding. No rigidity and no rebound tenderness. No costovertebral angle tenderness. GENITALIA: Female. RECTAL: Examination is deferred. EXTREMITIES: Shows no pitting edema, no calf tenderness, and no Homans' sign. MUSCULOSKELETAL: Examination shows a body mass index of 21.1. NEUROLOGIC: Cranial nerves II through XII limited. Gait examination; the patient is able to stand up with assistance. DIAGNOSTIC STUDIES: On 10/20/2017, WBC of 7.5, hemoglobin and hematocrit of 12 and 37.3, and platelets of 290. Sodium of 139, potassium of 4.4, chloride of 102, CO2 of 28, anion gap of 14, BUN of 5, and creatinine of 0.5. GFR is greater than 60, glucose is 98, calcium is 9.7, phosphorus is 3.3, and magnesium is 2.1. LFTs are normal. Urine cultures growing Escherichia coli which is pansensitive. IMPRESSION AND PLAN 1. Deconditioning. 2. Gait dysfunction. 3. Hypotension. 4. Tachycardia. 5. Delirium. 6. Dementia. 7. History of any hallucination and psychosis. 8. History of Escherichia coli, urinary tract infection. 9. Normocytic anemia. 10. Symptomatic hypokalemia. 11. Proteinuria. 12. Hematuria., pyuria, and bacteriuria. 13. Hypokalemia. 14. Anorexia. 15. Weight loss. 16. Subclinical hyperthyroidism. PLAN: At this time, we are awaiting for repeat urine cultures. The patient was ordered a stool Clostridium difficile toxin which is still unconnected. Current consultation Cardiology and Psychiatry. CURRENT MEDICATIONS: 1. Aricept 10 mg bedtime. 2. D5 half normal saline at 80 ml an hour. 3. Inderal 10 mg twice a day. 4. K-Dur 20 mEq three times a day. 5. Lovenox 40 mg subcutaneous daily. 6. Maxipime 1 g IV q. 12 h. 7. Periactin 4 mg twice a day. 8. Protonix 40 mg daily. 9. Risperdal 1 mg bedtime p.r.n. 10. Tapazole 5 mg daily. 11. Thiamine 100 mg twice a day. 12. Xopenex nebulizer 0.63 mg every 6 hours. DIET: The patient is on regular diet. The patient's daughter and the patient was updated about the patient's condition, diagnosis, diagnostic test results which has already been explained to the patient's daughter while the patient was admitted on the Acute Care site from 10/10/2017 to 10/14/2017. I have advised the patient's daughter to please contact health care social worker regarding the authorized approved days for the TCU. DATE OF SERVICE: 10/20/2017 Dictated and electronically signed, not read. Signing off Sergei Siddiqui MD Sergei Siddiqui MD
[2017-10-21] MEDS: Dextrose 5%/0.45% NS 1,000 ML IV SCH ×2 (00:09→12:56)
[2017-10-21] MEDS: Levalbuterol 0.63 MG/3 ML Inhal Soln UD IH SCH ×4 (02:30→19:49)
[2017-10-21] MEDS: Cefepime 1gm in NS 100ml 1 GM/100 ML BAG IVPB SCH ×2 (05:01→17:09)
[2017-10-21] MEDS: Pantoprazole 20 mg EC Tab PO SCH ×2 (05:02→17:11)
[2017-10-21] MEDS: Enoxaparin 40 mg Syringe SC SCH (05:02)
--- NOTE | 2017-10-21 08:16 | PN ---
DATE: 10/20/2017 SUBJECTIVE: The patient was followed up by this tech writer today. The patient presented better. The patient was alert, observed eating with a good appetite. The patient's family is next to the patient. This tech writer advised family to obtain power of compliance attorney or at least to discuss with the whole family. As per the patient's daughter, power of compliance attorney was signed few days back and the patient's daughter, Anna Keller, is going to be power of compliance attorney for this patient. The patient seems to have basic understanding of that process. The patient is much calmer. There is no agitation or aggression. As per daughter at times, the patient could be confused, but it is understandable because the patient is in the hospital at present moment. As per staff, the patient does not have any behavioral disturbances, compliant with the medications, pleasant, cooperative. PHYSICAL EXAMINATION VITAL SIGNS: Stable. Temperature 97.8, pulse is 56, blood pressure 130/94, respiration 18. MEDICATIONS: Reviewed. Cefepime, dextrose, Aricept, Lovenox, Xopenex, Tapazole, Protonix, K-Dur, Inderal and Risperdal oral solution. The patient was not getting any Risperdal because the patient is able to sleep and not agitated and as well as thiamine 100 mg twice a day. Labs reviewed. Most recent was from today, seems to be within normal limits. Mental status examination of this tech writer as described above. The patient seems to be calm, cooperative, intermittent eye contact. Speech was minimal. The patient is Estonian speaking, but was able to understand the basic questions. The patient reported that she feels okay. Affect was constricted, but reactive. Thought process seems to be concrete, at times, the patient confabulates. Thought content, the patient denied visual, auditory, or tactile hallucinations. Denied paranoid ideation. Denied thoughts of harming herself or others. Denied intent or plan. Insight and judgment seems to be improving but the patient has dementia. Impulses are well controlled. IMPRESSION: Delirium is getting better. The patient is improving. The patient has dementia. PLAN: Continue current management. Continue current medication. Physical therapy. The patient was not required to be on Risperdal, confusion is much better. The patient signed POA and pointed her daughter to be her POA, as per daughter's report. Pt should continue current management. Continue current medication. The patient and her family were educated about risks, benefits and alternatives of all of the medications. This tech writer will sign off. Should you have any questions give me a call back. Thank you very much for letting me participate in care of your patient. Mary Barrientos MD [facility]TD[facility]
[2017-10-21] MEDS: Potassium Chloride 20 mEq ER Tab PO SCH ×3 (10:25→17:10)
[2017-10-21] MEDS: methIMAzole 5 MG TAB PO SCH (10:26)
[2017-10-21 16:34] VITALS: RESP 18; TEMP 98.7
[2017-10-21 16:53] VITALS: O2SAT 97
[2017-10-22] MEDS: Dextrose 5%/0.45% NS 1,000 ML IV SCH (01:41)
[2017-10-22] MEDS: Pantoprazole 20 mg EC Tab PO SCH (05:16)
[2017-10-22] MEDS: Enoxaparin 40 mg Syringe SC SCH (05:16)
[2017-10-22] MEDS: Levalbuterol 0.63 MG/3 ML Inhal Soln UD IH SCH ×2 (07:31→13:37)
--- NOTE | 2017-10-22 08:54 | PN ---
DATE: 10/21/2017 LOCATION: The patient is seen in room 319, bed 1. SUBJECTIVE: The patient is out of bed to recliner. The patient is alert, awake, and responsive. The patient does not appear to be in any distress. Overnight nurse's notes were reviewed. The patient without any distress. OBJECTIVE: GENERAL: The patient was found to be alert, awake, and oriented x1. VITAL SIGN: T-max 98.7, pulse 86, blood pressures 105/59, 98/53, and 103/54, respirations 18, and O2 sat 97%. HEAD: Normocephalic, atraumatic. HEENT: Shows pinkish conjunctivae. Anicteric sclerae. No oropharyngeal lesion. Positive facial muscle wasting. NECK: No jugular venous distention. Questionable soft carotid bruit. CHEST: Kyphosis. Positive right mastectomy. No rales, crackles or wheezing. CARDIOVASCULAR: Shows S1 and S2, regular rate and rhythm. Questionable soft systolic murmur left sternal border, right second intercostal space, left second intercostal space. ABDOMEN: Soft. Positive bowel sounds. Healed surgical scar, cholecystectomy. No epigastric, no periumbilical tenderness noted. No guarding, no rigidity. No rebound tenderness. No hepatosplenomegaly. GENITALIA: Female. RECTAL: Deferred. EXTREMITIES: Lower extremity shows no pitting, no calf tenderness, no Homans' sign. NEUROLOGIC: The patient is alert, awake, and oriented x1. The patient is confused. MUSCULOSKELETAL: Body mass index of 21. DIAGNOSTIC STUDIES: From 10/21/2017, none. Repeat urine cultures less than 1000. The patient is seen by Psychiatry today, Dr. Barrientos. Her recommendation is resolving delirium. IMPRESSION AND PLAN: 1. Gait dysfunction. 2. Deconditioning. 3. Dementia. 4. Resolving delirium. 5. Psychosis. 6. Hypertension. 7. Tachycardia. 8. Normocytic anemia. 9. Symptomatic hypokalemia. 10. Escherichia coli urinary tract infection. 11. Anorexia. 12. Weight loss. 13. Subclinical hyperthyroidism. PLAN: At this time, the patient has E. coli pansensitive. The patient will be ordered ciprofloxacin 500 p.o. twice a day. IV cefepime will be stopped. CURRENT MEDICATIONS: 1. Aricept 10 mg at bedtime. 2. Cipro 500 twice a day. 3. Cefepime stopped. 4. D5 half normal saline at 80 mL an hour. 5. Inderal 10 mg twice a day. 6. K-Dur 20 mEq three times a day. 7. Lovenox 40 mg subcu daily. 8. Periactin 4 mg twice a day. 9. Protonix 40 mg daily. 10. Risperdal 1 mg at bedtime p.r.n. 11. Tapazole 5 mg daily. 12. Tylenol 650 q. 4 hours p.r.n. 13. Thiamine 100 mg twice a day. 14. Xopenex 0.63 mg nebulizer every 6 hours. The patient's case is referred to Freight Adjuster for discharge planning. The patient's daughter was advised to meet with the high school social science teacher regarding discharge planning. The patient will be continued on the Transitional Care Unit with physical therapy, occupational therapy, ambulation therapy, and gait training. Sergei Siddiqui MD
[2017-10-22] MEDS: Potassium Chloride 20 mEq ER Tab PO SCH (09:06)
[2017-10-22] MEDS: methIMAzole 5 MG TAB PO SCH (09:07)
[2017-10-22 09:09] VITALS: BP 81/50; PULSE 96
--- NOTE | 2017-10-23 06:50 | DS ---
The patient is seen in room 319, bed 1. Overnight nurse's notes were reviewed. No adverse events documented. The patient continued to be alert, awake, oriented x1. REVIEW OF SYSTEMS: A 13-system review of symptoms was positive for alert, awake, oriented x1. PHYSICAL EXAMINATION: VITAL SIGNS: T-max 98.7, pulse 86, blood pressure 105/60, respirations 18, O2 sat 97%. HEENT: Normocephalic, atraumatic. Shows positive bitemporal facial muscle wasting. NECK: No neck rigidity. Questionable soft carotid bruit. CHEST: Kyphosis. LUNGS: Shows no rales, crackles, or wheezing. CARDIOVASCULAR: S1, S2, regular rhythm. No audible murmur, gallop or rub at this time. ABDOMEN: Soft. Positive bowel sounds. She has a surgical scar of cholecystectomy. Positive right mastectomy surgical scar noted on the chest. Positive kyphosis in chest noted. No hepatosplenomegaly noted. No guarding. No rigidity. No rebound tenderness. GENITALIA: Female. RECTAL: Deferred. EXTREMITIES: Shows no pitting edema, no calf numbness, no Homans sign. MUSCULOSKELETAL: Shows decreased muscle mass. NEUROLOGIC: The patient is alert, awake, oriented. Cranial nerves II to XII limited. Gait examination is not tested today. DIAGNOSTICS: None from today. Repeat urine cultures from yesterday shows less than 1000 colony count. FINAL IMPRESSION, PLAN, AND DISCHARGE DIAGNOSES: 1. Deconditioning. 2. Gait dysfunction. 3. Severe symptomatic hypokalemia. 4. Hypotension. 5. Sinus tachycardia. 6. Possible subclinical hyperthyroidism. 7. Dementia. 8. Tachycardia. 9. Anorexia. 10. Weight loss. 11. Escherichia coli urinary tract infection. 12. Delirium. 13. History of psychosis and history of auditory and visual hallucination. 14. Gait dysfunction. 15. History of ulcerative colitis, off medications. PLAN: At this time, the patient will be considered for discharge after completion of the TCU approved stay. The patient's daughter has been in contact with the Social Service regarding discharge planning. The patient's daughter has been updated about the patient's condition, diagnoses, test results, recommendation by all physicians. The patient was seen and evaluated by Psychiatry. Their recommendations were noted and it was reinforced to the patient's daughter. DISCHARGE MEDICATIONS: As per updated ambulatory orders, which includes Inderal 10 mg twice a day, 20 mg daily, K-Dur 20 mEq three times a day, Protonix 20 mg twice a day or 40 mg twice a day, Tapazole 5 mg daily, Aricept 10 mg daily, Risperdal 1 mg at bedtime p.r.n. if needed, hold for sedation. The patient is on Cipro 500 p.o. twice a day for 7 more days. In addition, all other discharge medications as per updated revised ambulatory orders and the new scripts. The patient is to be discharged after completion of the approved days of TCU. Discharge followup with Dr. Siddiqui within one week. Details of the discharge diagnoses, test results, all physician recommendations explained to the patient's daughter, Xiomara, at length. Time spent in the entire discharge process more than 45 minutes. Dictated and electronically signed, not read. Sergei Siddiqui MD
== END 2017-10-22 13:52 | disposition home health service (06) | DRG 92 ==
LOC: TRCU 18:31
PROVIDERS: ADMIT Internal Medicine; ATTEND Internal Medicine
PROC: F07Z9FZ Gait Training/Functional Ambulation Treatment using Assistive, Adaptive, Supportive or Protective Equipment (ICD-10-PCS; principal; 2017-10-16)
PROC: F07L6ZZ Therapeutic Exercise Treatment of Musculoskeletal System - Lower Back / Lower Extremity (ICD-10-PCS; 2017-10-16)
PROC: F08Z1FZ Dressing Techniques Treatment using Assistive, Adaptive, Supportive or Protective Equipment (ICD-10-PCS; 2017-10-20)
PROC: F08Z0FZ Bathing/Showering Techniques Treatment using Assistive, Adaptive, Supportive or Protective Equipment (ICD-10-PCS; 2017-10-20)
PROC: F08Z2FZ Grooming/Personal Hygiene Treatment using Assistive, Adaptive, Supportive or Protective Equipment (ICD-10-PCS; 2017-10-20)
DX: R26.9 Unspecified abnormalities of gait and mobility (principal); N39.0 Urinary tract infection, site not specified; R64 Cachexia; F05 Delirium due to known physiological condition; I50.30 Unspecified diastolic (congestive) heart failure; K51.90 Ulcerative colitis, unspecified, without complications; I11.0 Hypertensive heart disease with heart failure; G30.9 Alzheimer's disease, unspecified; F02.80 Dementia in other diseases classified elsewhere, unspecified severity, without behavioral disturbance, psychotic disturbance, mood disturbance, and anxiety; I95.9 Hypotension, unspecified; D64.9 Anemia, unspecified; E05.90 Thyrotoxicosis, unspecified without thyrotoxic crisis or storm; E87.6 Hypokalemia; B96.20 Unspecified Escherichia coli [E. coli] as the cause of diseases classified elsewhere; R31.29 Other microscopic hematuria; N83.201 Unspecified ovarian cyst, right side; R62.7 Adult failure to thrive; E78.5 Hyperlipidemia, unspecified; R00.0 Tachycardia, unspecified; Z68.21 Body mass index [BMI] 21.0-21.9, adult; Z90.11 Acquired absence of right breast and nipple